=== PATIENT | female | born 1940 | race Caucasian/White ===

== ENCOUNTER 2019-08-03 10:48 | Inpatient (IN) ==
[2019-08-03] MEDS ORDERED: ALBUT/IPRATROP 3MG/0.5MG NEB 3 ML VIAL NEB STA (10:54)
--- NOTE | 2019-08-03 10:58 | Emergency Department Note ---
Entered by Emmy Camarillo acting as a scribe for Jackson Hernandez DO History of Present Illness General Chief complaint: Shortness of Breath/Dyspnea Stated complaint: sob Source: family (daughter) and EMS History of Present Illness Onset (ago): hour(s) (several hours prior to arrival) Location: chest Pain Consistency: + other (worsening ) Quality: + other (shortness of breath ) Associated symptoms: + other (positive left leg swelling; positive congestion); no nausea/vomiting Treatments prior to arrival: other (duoneb ) The patient is a 79 year old female who presents to the Emergency Room with complaints of worsening shortness of breath that began several hours prior to arrival, per the patient's daughter. EMS reports that the patient's SATs were in the low 80s upon their arrival. EMS states that the patient was given a duoneb treatment prior to arrival. The patient's daughter states that the patient was at her baseline yesterday with some congestion. Per the patient's daughter, the patient was suctioned and a clear yellow mucous was removed. The patient's daughter denies any nausea, vomiting, and chance of aspiration. The patient's daughter reports a history of left-sided pneumonia in the patient. The patient's daughter states that the patient was recently found to have a hiatal hernia so her omeprazole was increased. The patient's daughter states that the patient has swelling in her legs at baseline, but states that since yesterday the patient's left leg has been swollen and has not reduced like it typically does throughout the day. The patient's daughter states that the patient did not receive a flu shot this year. Home Medications Home Medications Medication Instructions Recorded Confirmed Type cholecalciferol (vitamin D3) 25 1,000 units PO QAM 04/09/19 08/03/19 History mcg (1,000 unit) capsule docusate sodium 100 mg capsule 100 mg PO BID 04/09/19 08/03/19 History fluoxetine 20 mg capsule 20 mg PO QAM 04/09/19 08/03/19 History fluticasone propionate 50 1 sprays INTNAS DAILY PRN 04/09/19 08/03/19 History mcg/actuation nasal spray,suspension furosemide 20 mg tablet 20 mg PO QAM 04/09/19 08/03/19 History losartan 25 mg tablet 25 mg PO QAM 04/09/19 08/03/19 History tramadol 50 mg tablet 50 mg PO Q4H PRN tab 04/09/19 08/03/19 History Linzess 145 mcg PO QAM 04/18/19 08/03/19 History Mucinex DM 1 tab PO Q12H 08/03/19 08/03/19 History albuterol sulfate 2.5 mg INHALATION Q4H PRN 08/03/19 08/03/19 History levocetirizine 5 mg PO HS 08/03/19 08/03/19 History omeprazole 20 mg PO BID 08/03/19 08/03/19 History Allergies Allergy/AdvReac Type Severity Reaction Status Date / Time doxycycline Allergy Severe swollen Verified 08/03/19 11:27 eyes Bactrim Allergy Unknown UNKNOWN Unverified 03/17/14 14:51 Cipro Allergy Unknown UNKNOWN Unverified 03/17/14 14:51 ciprofloxacin Allergy Unknown UNKNOWN Unverified 08/03/19 11:27 sulfamethoxazole Allergy Unknown UNKNOWN Unverified 08/03/19 11:27 trimethoprim Allergy Unknown UNKNOWN Unverified 08/03/19 11:27 Past Med/Surg History Medical History (Updated 08/03/19 @ 17:36 by Laverne Crocker PA-C) Cardiac murmur Depression Encounter for pre-operative examination GERD (gastroesophageal reflux disease) History of hypertension History of pneumonia "CHRONIC" Hx of shortness of breath IBS (irritable bowel syndrome) Kyphoscoliosis Osteoarthritis Polio WHEELCHAIR BOUND Restrictive lung disease Surgical History Difficult intravenous access PT VERY ANXIOUS ABOUT IV STICK ALSO! History of cholecystectomy History of colonoscopy Family History Sister Family history of diabetes mellitus Brother Family history of diabetes mellitus Brother Family history of diabetes mellitus Brother Family history of diabetes mellitus Brother Family history of diabetes mellitus Other Diabetes Heart disease Lung cancer Lung disease Social History Preferred Language: Afghan Communication Ability: Effective Supervisor Paste Mixing Required: No Beliefs That Will Affect Care: None Current Living Situation: Alone Current Living Situation Comment: Personal care Other Information That Helps Us Care for You: No Feels Safe at Home: Yes Safety Concerns: Feels Safe At This Time Smoking Status: Current every day smoker Tobacco Type: cigarettes ; Cigarettes Per Day: 1 ; Do You Dip or Chew Tobacco: No ; Second Hand Exposure: No ; Tobacco Cessation Education Requested by Patient: No Hx Alcohol Use: No Hx Substance Use: No Review of Systems See HPI for pertinent positives & negatives. and A total of 10 systems reviewed and were otherwise negative Physical Exam Vital Signs Vital Signs - 24 hr 08/03/19 10:37 08/03/19 10:53 08/03/19 10:54 Temperature Temperature Source Pulse Rate 96 H 96 H 94 H Pulse Rate [Right Apical] Pulse Rate from SpO2 Sensor 97 H 97 H Respiratory Rate 28 H 27 H 26 H Respiratory Effort / Characteristics Blood Pressure 132/60 174/70 H Blood Pressure Mean 93 100 Pulse Oximetry 84 L 87 L Oxygen Delivery Method Oxygen Flow Rate Sepsis Recent Fever Within 48 Hours Sepsis Action Taken by Nursing 08/03/19 11:00 08/03/19 11:01 08/03/19 11:05 Temperature Temperature Source Pulse Rate 92 H 92 H Pulse Rate [Right Apical] Pulse Rate from SpO2 Sensor 91 H 92 H Respiratory Rate 25 H 23 Respiratory Effort / Characteristics Blood Pressure 164/68 H Blood Pressure Mean 103 Pulse Oximetry 93 90 96 Oxygen Delivery Method Room Air Oxygen Flow Rate Sepsis Recent Fever Within 48 Hours Sepsis Action Taken by Nursing 08/03/19 11:06 08/03/19 11:10 08/03/19 11:11 Temperature 36.4 C L Temperature Source Oral Pulse Rate 96 H Pulse Rate [Right Apical] 91 H Pulse Rate from SpO2 Sensor Respiratory Rate 26 H 18 Respiratory Effort / Characteristics Non-Labored Spontaneous Blood Pressure 174/70 H Blood Pressure Mean 104 Pulse Oximetry 87 L 93 91 Oxygen Delivery Method Room Air Nasal Cannula Nasal Cannula Oxygen Flow Rate 4 4 Sepsis Recent Fever Within 48 Hours No Sepsis Action Taken by Nursing No Action Required 08/03/19 11:30 08/03/19 12:00 08/03/19 12:01 Temperature Temperature Source Pulse Rate 90 87 87 Pulse Rate [Right Apical] Pulse Rate from SpO2 Sensor 90 86 87 Respiratory Rate 22 22 22 Respiratory Effort / Characteristics Blood Pressure 141/82 H Blood Pressure Mean 92 Pulse Oximetry 93 99 98 Oxygen Delivery Method Oxygen Flow Rate Sepsis Recent Fever Within 48 Hours Sepsis Action Taken by Nursing 08/03/19 12:23 08/03/19 12:30 08/03/19 12:31 Temperature Temperature Source Pulse Rate 86 86 Pulse Rate [Right Apical] Pulse Rate from SpO2 Sensor 86 86 Respiratory Rate 21 18 Respiratory Effort / Characteristics Blood Pressure 137/73 Blood Pressure Mean 83 Pulse Oximetry 96 96 96 Oxygen Delivery Method Nasal Cannula Oxygen Flow Rate 4 Sepsis Recent Fever Within 48 Hours Sepsis Action Taken by Nursing 08/03/19 13:00 08/03/19 13:01 08/03/19 13:18 Temperature Temperature Source Pulse Rate 83 84 Pulse Rate [Right Apical] Pulse Rate from SpO2 Sensor 83 84 Respiratory Rate 21 20 Respiratory Effort / Characteristics Blood Pressure 153/84 H Blood Pressure Mean 102 Pulse Oximetry 100 99 99 Oxygen Delivery Method Nasal Cannula Oxygen Flow Rate 3 Sepsis Recent Fever Within 48 Hours Sepsis Action Taken by Nursing 08/03/19 13:30 08/03/19 13:31 08/03/19 14:00 Temperature Temperature Source Pulse Rate 84 82 75 Pulse Rate [Right Apical] Pulse Rate from SpO2 Sensor 84 83 75 Respiratory Rate 19 19 18 Respiratory Effort / Characteristics Blood Pressure 167/73 H 177/69 H Blood Pressure Mean 94 112 Pulse Oximetry 98 97 98 Oxygen Delivery Method Oxygen Flow Rate Sepsis Recent Fever Within 48 Hours Sepsis Action Taken by Nursing 08/03/19 14:01 Temperature Temperature Source Pulse Rate 77 Pulse Rate [Right Apical] Pulse Rate from SpO2 Sensor 77 Respiratory Rate 20 Respiratory Effort / Characteristics Blood Pressure Blood Pressure Mean Pulse Oximetry 99 Oxygen Delivery Method Oxygen Flow Rate Sepsis Recent Fever Within 48 Hours Sepsis Action Taken by Nursing GENERAL: Patient is awake and responds to questions. She appears somewhat li stless but does not appear to be in pain. EYES: The conjunctivae are clear. The pupils are round and reactive. EARS, NOSE, MOUTH AND THROAT: The nose is without any evidence of any deformity. Mucous membranes are dry. NECK: The neck is nontender and supple. RESPIRATORY: Shallow respirations were noted. There were scattered rhonchi noted throughout. Diminished breath sounds are noted at both bases left greater than right. CARDIOVASCULAR: Regular rate and rhythm noted there no murmurs rubs or gallops normal S1 normal S2. GASTROINTESTINAL: The abdomen is soft. Abdomen is nontender. BACK: Severe kyphoscoliosis is noted. MUSCULOSKELETAL/EXTREMITIES: There is no evidence of gross deformity full range of motion is noted in the hips and shoulders. SKIN: There is no obvious evidence of any rash. Pedal edema was noted left greater than right. NEUROLOGIC: Patient is awake and oriented to person place and situation. Course Course 1049: Past medical records reviewed. The patient was evaluated in room C9. A complete history and physical exam was performed. 1259: I checked on and updated the patient and her family. 1310: I discussed the case with Laverne Zuleta PA-C who accepts the patient for further evaluation by Dr. Mack Hospitalist who accepts the patient for further evaluation. Administered Medications Acetylcysteine (Mucomyst 10%) 3 ml INH Q12R ROSELYN Stop: 09/02/19 15:43 Last Admin: 08/04/19 07:10 Dose: 3 ml Documented by: [id number] Admin: 08/03/19 19:52 Dose: 1 ml Documented by: [id number] Docusate Sodium (Colace) 100 mg PO BID ROSELYN Stop: 09/02/19 20:59 Last Admin: 08/04/19 08:09 Dose: 100 mg Documented by: [id number] Admin: 08/03/19 21:22 Dose: 100 mg Documented by: [id number] Fluoxetine HCl (Prozac) 20 mg PO QAM ROSELYN Stop: 09/03/19 08:59 Last Admin: 08/04/19 08:13 Dose: 20 mg Documented by: [id number] Guaifenesin (Mucinex) 600 mg PO Q12 ROSELNY Stop: 09/02/19 20:59 Last Admin: 08/04/19 08:13 Dose: 600 mg Documented by: [id number] Admin: 08/03/19 21:21 Dose: 600 mg Documented by: [id number] Heparin Sodium (Porcine) (Heparin Sodium (Porcine)) 5,000 units SQ Q12 ROSELYN Stop: 09/02/19 20:59 Last Admin: 08/04/19 08:20 Dose: Not Given Documented by: [id number] Admin: 08/03/19 21:21 Dose: Not Given Documented by: [id number] Sodium Chloride (Nss) 500 mls @ 60 mls/hr IV .Q8H20M ROSELYN Stop: 09/02/19 16:29 Last Admin: 08/04/19 08:24 Dose: 60 mls/hr Documented by: [id number] Infusion: 08/04/19 08:23 Dose: 0 mls/hr Documented by: [id number] Admin: 08/04/19 01:15 Dose: 60 mls/hr Documented by: [id number] Infusion: 08/04/19 01:13 Dose: 0 mls/hr Documented by: [id number] Admin: 08/03/19 17:20 Dose: 60 mls/hr Documented by: [id number] Piperacillin Sod/Tazobactam (Sod 3.375 gm/ Dextrose) 115 mls @ 28.75 mls/hr IV Q8H [facility]; Protocol Stop: 08/10/19 17:59 Last Admin: 08/04/19 08:27 Dose: 28.8 mls/hr Documented by: [id number] Infusion: 08/04/19 05:15 Dose: 0 mls/hr Documented by: [id number] Admin: 08/04/19 01:15 Dose: 28.8 mls/hr Documented by: [id number] Infusion: 08/03/19 21:28 Dose: 0 mls/hr Documented by: [id number] Admin: 08/03/19 17:28 Dose: 28.8 mls/hr Documented by: [id number] Ioversol (Optiray 320 125ml) 120 ml IV ONCE PRN PRN Reason: Interaction Checking Stop: 08/07/19 14:23 Last Admin: 08/03/19 14:24 Dose: 120 ml Documented by: [id number] Ipratropium [place] (Atrovent 0.02% 0.5mg/2.5ml) 0.5 mg INH Q6R [facility] Stop: 09/02/19 15:43 Last Admin: 08/04/19 07:11 Dose: 0.5 mg Documented by: [id number] Admin: 08/04/19 00:42 Dose: 0.5 mg Documented by: [id number] Admin: 08/03/19 21:22 Dose: Not Given Documented by: [id number] Levalbuterol HCl (Xopenex 0.63 Mg/3 Ml Neb) 0.63 mg NEB Q6R [facility] Stop: 09/02/19 15:43 Last Admin: 08/04/19 07:11 Dose: 0.63 mg Documented by: [id number] Admin: 08/04/19 00:41 Dose: 0.63 mg Documented by: [id number] Admin: 08/03/19 19:51 Dose: 0.63 mg Documented by: [id number] [facility]ess) [facility] Stop: 09/03/19 08:59 Last Admin: 08/04/19 08:11 Dose: 144 mcg Documented by: [id number] Losartan Potassium (Cozaar) 50 mg PO QAM [facility] Stop: 09/03/19 03:59 Last Admin: 08/04/19 05:03 Dose: 50 mg Documented by: [id number] Menthol (Nice) 1 oscar BUCCAL Q2H PRN PRN Reason: Sore Throat Stop: 09/03/19 06:05 Last Admin: 08/04/19 06:49 Dose: 1 oscar Documented by: [id number] Miscellaneous (Order Awaiting Action) 1 ea N/A QS [facility] Stop: 09/03/19 00:00 Last Admin: 08/04/19 08:09 Dose: Not Given Documented by: [id number] Admin: 08/04/19 00:17 Dose: Not Given Documented by: [id number] Pantoprazole Sodium (Protonix) 40 mg PO DAILY [facility] Stop: 09/03/19 08:59 Last Admin: 08/04/19 08:12 Dose: 40 mg Documented by: [id number] Tramadol HCl (Ultram) 50 mg PO Q4H PRN PRN Reason: pain Stop: 09/02/19 15:43 Last Admin: 08/04/19 02:30 Dose: 50 mg Documented by: [id number] Vitamin D (Vitamin D3) 1,[facility] [place] Stop: 09/03/19 08:59 Last Admin: 08/04/19 08:14 Dose: 1,000 units Documented by: [id number] Discontinued Medications Acetylcysteine (Mucomyst 10%) 3 ml INH Q12H [facility] Stop: 09/02/19 15:43 Last Admin: 08/03/19 16:47 Dose: 3 ml Documented by: [id number] Albuterol (Duoneb) 3 ml NEB NOW STA Stop: 08/03/19 10:55 Last Admin: 08/03/19 11:07 Dose: 3 ml Documented by: [id number] Piperacillin Sod/Tazobactam Sod (Zosyn) 4.5 gm in 120 mls @ 240 mls/hr IV NOW ONE Stop: 08/03/19 13:24 Last Infusion: 08/03/19 14:02 Dose: 0 mls/hr Documented by: [id number] Admin: 08/03/19 13:32 Dose: 240 mls/hr Documented by: [id number] Sodium Chloride (Nss 1000ml) 500 mls @ 999 mls/hr IV .Q31M ONE Stop: 08/03/19 13:26 Last Infusion: 08/03/19 14:02 Dose: 0 mls/hr Documented by: [id number] Admin: 08/03/19 13:32 Dose: 999 mls/hr Documented by: [id number] Ipratropium [place] (Atrovent 0.02% 0.5mg/2.5ml) 0.5 mg INH UD [facility] Stop: 09/02/19 15:43 Last Admin: 08/03/19 16:36 Dose: 0.5 mg Documented by: [id number] Levalbuterol HCl (Xopenex 0.63 Mg/3 Ml Neb) 0.63 mg NEB UD ROSE[place]N Stop: 09/02/19 15:43 Last Admin: 08/03/19 16:36 Dose: 0.63 mg Documented by: [id number] Medical Decision Making Differential Diagnosis Differential diagnoses includes but is not limited to pneumonia, bronchitis, COPD/Asthma exacerbation, pneumothorax, pulmonary embolism, congestive heart failure, acute coronary syndrome Medical Records Attestation: I reviewed the patient's medical records. Home Medications Current Medication List: was personally reviewed by me Laboratory Data Attestation: I reviewed the patient's lab results. Result diagrams: 08/04/19 06:39 08/04/19 06:39 Lab Results 08/03/19 08/03/19 08/03/19 Range/Units 11:15 11:52 11:52 WBC 14.93 H (4.8-10.8) K/uL RBC 4.68 (4.2-5.4) M/uL Hgb 14.6 (12.0-16.0) g/dL Hct 42.6 (37-47) % MCV 91.0 (80-100) fL MCH 31.2 (25-34) pg MCHC 34.3 (32-36) g/dL RDW Std Deviation 52.8 H (36.4-46.3) fL RDW Coeff of Bryan 15.9 H (11.5-14.5) % Plt Count 240 (130-400) K/uL MPV 10.0 (7.4-10.4) fL Immature Gran % (Auto) 0.2 % Neut % (Auto) 76.0 % Lymph % (Auto) 14.5 % [place] % (Auto) 5.6 % Eos % (Auto) 3.2 % Baso % (Auto) 0.5 % Immature Gran # (Auto) 0.03 H (0.00-0.02) K/uL Neut # (Auto) 11.35 H (1.4-6.5) K/uL Lymph # (Auto) 2.17 (1.2-3.4) K/uL [place] # (Auto) 0.83 H (0.11-0.59) K/uL Eos # (Auto) 0.48 (0-0.5) K/uL Baso # (Auto) 0.07 (0-0.2) K/uL PT 10.3 (9.0-12.0) Seconds INR 1.0 (0.9-1.1) APTT 24.0 (21.0-31.0) Seconds PTT Ratio 0.9 Sodium (136-145) mmol/L Potassium (3.5-5.1) mmol/L Chloride (98-107) mmol/L Carbon Dioxide (21-32) mmol/L Anion Gap (3-11) BUN (7-18) mg/dl Creatinine (0.6-1.2) mg/dl Est Cr Clr Drug Dosing ml/min Est GFR ( Amer) Est GFR (Non-Af Amer) BUN/Creatinine Ratio (10-20) Glucose (70-99) mg/dl Calcium (8.5-10.1) mg/dl Magnesium (1.8-2.4) mg/dl Total Bilirubin (0.2-1) mg/dl AST (15-37) U/L ALT (12-78) U/L Alkaline Phosphatase (45-117) U/L Troponin I (0-0.045) ng/ml Total Protein (6.4-8.2) gm/dl Albumin (3.4-5.0) gm/dl Globulin (2.5-4.0) gm/dl Albumin/Globulin Ratio (0.9-2) Procalcitonin (0-0.5) ng/ml Influenza Type A (PCR) Neg for Influ A (Neg) Influenza Type B (PCR) Neg for Influ B (Neg) 08/03/19 08/03/19 Range/Units 11:52 11:52 WBC (4.8-10.8) K/uL RBC (4.2-5.4) M/uL Hgb (12.0-16.0) g/dL Hct (37-47) % MCV (80-100) fL MCH (25-34) pg MCHC (32-36) g/dL RDW Std Deviation (36.4-46.3) fL RDW Coeff of Bryan (11.5-14.5) % Plt Count (130-400) K/uL MPV (7.4-10.4) fL Immature Gran % (Auto) % Neut % (Auto) % Lymph % (Auto) % [place] % (Auto) % Eos % (Auto) % Baso % (Auto) % Immature Gran # (Auto) (0.00-0.02) K/uL Neut # (Auto) (1.4-6.5) K/uL Lymph # (Auto) (1.2-3.4) K/uL [place] # (Auto) (0.11-0.59) K/uL Eos # (Auto) (0-0.5) K/uL Baso # (Auto) (0-0.2) K/uL PT (9.0-12.0) Seconds INR (0.9-1.1) APTT (21.0-31.0) Seconds PTT Ratio Sodium 134 L (136-145) mmol/L Potassium 4.1 (3.5-5.1) mmol/L Chloride 101 (98-107) mmol/L Carbon Dioxide 24 (21-32) mmol/L Anion Gap 9.0 (3-11) BUN 34 H (7-18) mg/dl Creatinine 0.92 (0.6-1.2) mg/dl Est Cr Clr Drug Dosing 26.1 ml/min Est GFR ( Amer) 68.2 Est GFR (Non-Af Amer) 58.8 BUN/Creatinine Ratio 37.2 H (10-20) Glucose 120 H (70-99) mg/dl Calcium 9.1 (8.5-10.1) mg/dl Magnesium 2.1 (1.8-2.4) mg/dl Total Bilirubin 0.6 (0.2-1) mg/dl AST 22 (15-37) U/L ALT 17 (12-78) U/L Alkaline Phosphatase 91 (45-117) U/L Troponin I 0.015 (0-0.045) ng/ml Total Protein 7.2 (6.4-8.2) gm/dl Albumin 3.3 L (3.4-5.0) gm/dl Globulin 3.9 (2.5-4.0) gm/dl Albumin/Globulin Ratio 0.8 L (0.9-2) Procalcitonin < 0.05 (0-0.5) ng/ml Influenza Type A (PCR) (Neg) Influenza Type B (PCR) (Neg) Imaging Data Radiologist's Impression: Radiology results as stated below per my review and the radiologist's interpretation: SINGLE VIEW CHEST CLINICAL HISTORY: Sepsis. FINDINGS: An AP, portable, upright chest radiograph is compared to study dated 03/30/2006. The examination is degraded by portable technique and patient rotation. The cardiomediastinal silhouette is unremarkable noting atheroscle rotic calcification of the thoracic aorta. Chronic interstitial thickening is similar to previous. No airspace consolidation or large pleural effusion is identified. There is mild bibasilar atelectasis. A nipple shadow projects over the right lung base. No pneumothorax is seen. The skeletal structures are osteopenic. The bony thorax is grossly intact. There is moderate thoracolumbar scoliosis. IMPRESSION: No active disease in the chest. ACT 112: Negative or not required by law. Electronically signed by: Suleman Aguiar M.D. 08/03/2019 12:[address] ANGIOGRAM OF THE CHEST CLINICAL HISTORY: Dyspnea. COMPARISON STUDY: Chest CT dated 02/25/2019. Chest x-ray dated 08/03/2019. TECHNIQUE: Following the IV administration of 120 cc of Optiray 320, CT ang iogram of the chest was performed from the upper abdomen to the thoracic inlet utilizing the pulmonary embolus protocol. Images are reviewed in the axial, sagittal, and coronal planes. 3-D MIPS images are created and assessed. IV contrast was administered without complication. A dose lowering technique was utilized adhering to the principles of ALARA. The examination is significantly degraded by streak artifact from the arms which could not be elevated above the chest as well as by motion artifact. CT DOSE: 233.97 mGy.cm FINDINGS: Thyroid: Heterogeneous and not well visualized. Thoracic aorta: There is atherosclerotic calcification of the thoracic aorta, which is normal in caliber and demonstrates standard 3-vessel arch anatomy. The thoracic aorta is not well opacified. Pulmonary vasculature: The pulmonary trunk is normal in caliber. There are no filling defects identified in main, lobar, or segmental pulmonary branches to suggest pulmonary embolus. Heart: The heart is normal in size and without pericardial effusion. The coronary arteries are densely calcified. Lungs and pleural spaces: Evaluation of the lung parenchyma is modestly degraded by motion artifact. No lobar consolidation or pleural effusion is identified. Scarring/atelectasis is noted at the lung bases. There is mild diffuse peribronchial thickening with foci of mucus plugging/fluid and secretions seen in the upper and lower lobes. Layering secretions are noted in the trachea. There are scattered foci of parenchymal nodularity. A 5 mm nodule at the left lung base is image #37. A 3 m groundglass nodule in the right lower lobe as seen on image #143. Additional smaller ill-defined nodules are noted. Mediastinum: There is no mediastinal lymphadenopathy. [place]: Clear. Axillae: There is no axillary lymphadenopathy. Upper abdomen: Cholecystectomy clips are noted. Partially visualized upper abdominal viscera is otherwise grossly unremarkable. Skeletal structures: The skeletal structures are osteopenic. There is moderate to severe thoracolumbar scoliosis. This distorts the thoracic cavity. No lytic or blastic bony lesions are seen. IMPRESSION: 1. Streak and motion compromised examination. 2. There is no evidence of pulmonary embolus in the main, lobar, or segmental pulmonary arteries. 3. Moderate to severe thoracolumbar scoliosis distorts the thoracic cage. 4. There is no focal airspace consolidation or pleural effusion. 5. There are layering secretions in the trachea. Additionally, there is diffuse peribronchial thickening with fluid and secretions/mucous plugging within the upper and lower lobe bronchi. Correlate clinically for evidence of bronchitis/reactive airway disease or possibly mild aspiration. 6. Foci of ill-defined parenchymal nodularity are of indeterminate significance and similar to the 02/25/2019 examination. This can be followed if clinically warranted. See below. 7. Additional findings as above. Please refer to below summary of Fleischner criteria recommendations for follow- up of incidental CT nodules (Daysi Flynn, Guidelines for management of small p ulmonary nodules detected on CT scans: A statement from the Fleischner Society, Radiology 237: [phone].) SOLID NODULES Solitary nodule size: <6 mm * low risk patients: no follow-up needed * high risk patients: optional CT at 12 months Solitary nodule size: 6-8 mm * low risk patients: follow-up at 6-12 months, then consider further follow-up at 18-24 months * high risk patients: initial follow-up CT at 6-12 months and then at 18-24 months if no change Solitary nodule size: >8 mm * either low or high risk patients - consider follow-up CT at 3 months, and/or CT-PET, and/or biopsy Multiple nodules size: <6 mm * low risk patients: no routine follow-up * high risk patients: optional CT at 12 months Multiple nodules size: 6-8 mm * low risk patients: follow-up at 3-6 months, then consider further follow-up at 18-24 months * high risk patients: follow-up at 3-6 months, then at 18-24 months if no change Multiple nodules size: >8 mm * low risk patients: follow-up at 3-6 months, then consider further follow-up at 18-24 months * high risk patients: follow-up at 3-6 months, then at 18-24 months if no change Note: newly detected indeterminate nodule in persons 35 years of age or older. * low risk patients: minimal or absent history of smoking and/or other known risk factors * high risk patients: history of smoking or of other known risk factors (e.g. first degree relative with lung cancer, or exposure to asbestos, radon, uranium) * if a nodule up to 8 mm is partly solid or is ground glass further follow-up is required after 24 months to exclude possible slow growing adenocarcinoma (JABARI) SUBSOLID NODULES Solitary pure ground-glass nodule * nodule size <6 mm - no CT follow-up required * nodule size >=6 mm - follow-up CT at 6-12 months, then every 2 years until 5 years Solitary part-solid nodule * nodule size <6 mm - no CT follow-up required * nodule size >=6 mm - follow-up CT at 3-6 months. If unchanged, and solid component remains <6 mm, then annual follow-up for 5 years Multiple subsolid nodules * nodule size <6 mm - follow-up CT at 3-6 months, consider further follow-up at 2 and 4 years if stable * nodule size >=6 mm - follow-up CT at 3-6 months, subsequent management based on the most suspicious nodule(s) ACT 112: Negative or not required by law. Electronically signed by: Suleman Aguiar M.D. 08/03/2019 2:44 PM ECG Data Attestation: I personally reviewed and interpreted this ECG as follows: Indication: + SOB/dyspnea Rate (beats per minute): 91 Rhythm: + normal sinus ECG ST segments: + ST depression (inferior and lateral) ECG Findings: + Poor R wave progression; no PACs and no PVCs Comparison ECG Date: from (04/01/06) Change: no significant change (changes similar but increased) Blood Pressure Blood Pressure Findings: Elevated blood pressure Blood Pressure Disposition: further management by hospitalist MDM Narrative The patient is an 79-year-old female who presented to the emergency department for an evaluation of difficulty breathing. The patient arrived at the emergency department with family members. She was found to be severely hypoxic prior to arrival. She has a history of polio and severe kyphoscoliosis. The patient has had pneumonia in the past. The patient was treated with IV fluids and IV antibiotics. She was also treated with bronchodilators in the emergency department. She was reevaluated multiple times. I discussed the patient's laboratory and radiographic studies with her and her family members. Given her ongoing symptoms I discussed her case with the on-call [facility] hospitalist group. They have agreed to evaluate the patient in the emergency department for further management and disposition. Impression & Plan Bronchitis, Hypoxia, Weakness, Abnormal ECG Discharge Plan Visit Data *Final* Discharge Date/Time: 08/03/19 15:05 Chief Complaint: Shortness of Breath/Dyspnea Stated Complaint: sob ED Provider: Jackson Hernandez Discharge Problem: Bronchitis, Hypoxia, Weakness, Abnormal ECG Patient Disposition: Admitted As Inpatient Discharge Instructions Interventions: ED Discharge Assessment Last Done: 08/03/19 15:05 The scribe's documentation has been prepared under my direction and personally reviewed by me in its entirety. I confirm that the note above accurately reflects all work, treatment, procedures, and medical decision making performed by me.
[2019-08-03 12:00] LABS: Influenza A virus by PCR Neg for Influ A (Neg); Influenza B virus by PCR Neg for Influ B (Neg)
[2019-08-03 12:05] LABS: Basophils # (auto) 0.07 K/uL (0-0.2); Basophils % (auto) 0.5 %; Eosinophils # (auto) 0.48 K/uL (0-0.5); Eosinophils % (auto) 3.2 %; Hematocrit (blood only) 42.6 % (37-47); Hemoglobin 14.6 g/dL (12.0-16.0); Immature Granulocytes # (auto) 0.03 K/uL (0.00-0.02); Immature Granulocytes % (auto) 0.2 %; Lymphocytes # (auto) 2.17 K/uL (1.2-3.4); Lymphocytes % (auto) 14.5 %; Mean Corpuscular Hemoglobin 31.2 pg (25-34); Mean Corpuscular Hgb Conc 34.3 g/dL (32-36); Monocytes # (auto) 0.83 K/uL (0.11-0.59); Monocytes % (auto) 5.6 %; Neutrophils # (auto) 11.35 K/uL (1.4-6.5); Platelet Count 240 K/uL (130-400); RDW Coefficient of Variation 15.9 % (11.5-14.5); RDW Standard Deviation 52.8 fL (36.4-46.3); Red Blood Count 4.68 M/uL (4.2-5.4); White Blood Count 14.93 K/uL (4.8-10.8)
[2019-08-03 12:15] LABS: Partial Thromboplastin Ratio 0.9; Prothrombin Time 10.3 Seconds (9.0-12.0)
[2019-08-03 12:21] LABS: Albumin Level 3.3 gm/dl (3.4-5.0); BUN Creatinine Ratio 37.2 (10-20); Calcium 9.1 mg/dl (8.5-10.1); Creatinine Clr Calc Pharmacy 26.1 ml/min; Est GFR (African American) 68.2; Est GFR (Non-African American) 58.8; Magnesium 2.1 mg/dl (1.8-2.4); Potassium 4.1 mmol/L (3.5-5.1)
[2019-08-03 12:26] LABS: Albumin Globulin Ratio 0.8 (0.9-2); Bilirubin,Total 0.6 mg/dl (0.2-1); Globulin 3.9 gm/dl (2.5-4.0); Total Protein 7.2 gm/dl (6.4-8.2); Troponin I 0.015 ng/ml (0-0.045)
--- NOTE | 2019-08-03 12:43 | XRay Report ---
SINGLE VIEW CHEST CLINICAL HISTORY: Sepsis. FINDINGS: An AP, portable, upright chest radiograph is compared to study dated 03/30/2006. The examin ation is degraded by portable technique and patient rotation. The cardiomediastinal silhouette is u nremarkable noting atherosclerotic calcification of the thoracic aorta. Chronic interstitial thickeni ng is similar to previous. No airspace consolidation or large pleural effusion is identified. There i s mild bibasilar atelectasis. A nipple shadow projects over the right lung base. No pneumothorax is s een. The skeletal structures are osteopenic. The bony thorax is grossly intact. There is moderate tho racolumbar scoliosis. IMPRESSION: No active disease in the chest. ACT 112: Negative or not required by law. Electronically signed by: Suleman Aguiar M.D. 08/03/2019 12:42 PM
--- NOTE | 2019-08-03 12:54 | Electrocardiogram Report ---
Test Reason : Blood Pressure : / mmHG Vent. Rate : 091 BPM Atrial Rate : 091 BPM P-R Int : 144 ms QRS Dur : 084 ms QT Int : 404 ms P-R-T Axes : 073 015 124 degrees QTc Int : 496 ms Poor data quality, interpretation may be adversely affected Sinus rhythm with Premature atrial complexes Left atrial enlargement Cannot rule out Anterior infarct , age undetermined Abnormal ECG When compared with ECG of 01-APR-2006 08:38, Premature atrial complexes are now Present Minimal criteria for Anterior infarct are now Present T wave inversion now evident in Lateral leads Confirmed by Luca Moraes ([id number]) on 08/03/2019 12:54:14 PM Referred By: REFERRED SELF Confirmed By:Luca Moraes
[2019-08-03] MEDS ORDERED: PIPERACILL/TAZOBAC CONSULT ACTIVE PRN ×2 (12:55→16:12)
[2019-08-03] MEDS ORDERED: PIPERACILLIN/TAZOBACTAM 4.5 GM/120 ML BAG IV ONE (12:55)
[2019-08-03] MEDS ORDERED: SODIUM CHLORIDE 0.9% 1000ML 500 ML IV ONE (12:56)
[2019-08-03] MEDS ORDERED: OPTIRAY 320 125ml IV PRN (14:24)
--- NOTE | 2019-08-03 14:45 | CT Scan Report ---
CT ANGIOGRAM OF THE CHEST CLINICAL HISTORY: Dyspnea. COMPARISON STUDY: Chest CT dated 02/25/2019. Chest x-ray dated 08/03/2019. TECHNIQUE: Following the IV administration of 120 cc of Optiray 320, CT angiogram of the chest was pe rformed from the upper abdomen to the thoracic inlet utilizing the pulmonary embolus protocol. Images are reviewed in the axial, sagittal, and coronal planes. 3-D MIPS images are created and assessed. I V contrast was administered without complication. A dose lowering technique was utilized adhering to the principles of ALARA. The examination is significantly degraded by streak artifact from the arms which could not be elevated above the chest as well as by motion artifact. CT DOSE: 233.97 mGy.cm FINDINGS: Thyroid: Heterogeneous and not well visualized. Thoracic aorta: There is atherosclerotic calcification of the thoracic aorta, which is normal in mike bora and demonstrates standard 3-vessel arch anatomy. The thoracic aorta is not well opacified. Pulmonary vasculature: The pulmonary trunk is normal in caliber. There are no filling defects identif ied in main, lobar, or segmental pulmonary branches to suggest pulmonary embolus. Heart: The heart is normal in size and without pericardial effusion. The coronary arteries are densel y calcified. Lungs and pleural spaces: Evaluation of the lung parenchyma is modestly degraded by motion artifact. No lobar consolidation or pleural effusion is identified. Scarring/atelectasis is noted at the lung b ases. There is mild diffuse peribronchial thickening with foci of mucus plugging/fluid and secretions seen in the upper and lower lobes. Layering secretions are noted in the trachea. There are scattered foci of parenchymal nodularity. A 5 mm nodule at the left lung base is image #[id number]. A 3 m groundglass nodule in the right lower lobe as seen on image #143. Additional smaller ill-defined nodules are note d. Mediastinum: There is no mediastinal lymphadenopathy. Nazanin: Clear. Axillae: There is no axillary lymphadenopathy. Upper abdomen: Cholecystectomy clips are noted. Partially visualized upper abdominal viscera is other gates grossly unremarkable. Skeletal structures: The skeletal structures are osteopenic. There is moderate to severe thoracolumba r scoliosis. This distorts the thoracic cavity. No lytic or blastic bony lesions are seen. IMPRESSION: 1. Streak and motion compromised examination. 2. There is no evidence of pulmonary embolus in the main, lobar, or segmental pulmonary arteries. 3. Moderate to severe thoracolumbar scoliosis distorts the thoracic cage. 4. There is no focal airspace consolidation or pleural effusion. 5. There are layering secretions in the trachea. Additionally, there is diffuse peribronchial thicken ing with fluid and secretions/mucous plugging within the upper and lower lobe bronchi. Correlate clin ically for evidence of bronchitis/reactive airway disease or possibly mild aspiration. 6. Foci of ill-defined parenchymal nodularity are of indeterminate significance and similar to the examination. This can be followed if clinically warranted. See below. 7. Additional findings as above. Please refer to below summary of Fleischner criteria recommendations for follow-up of incidental CT n odules (Daysi Flynn, Guidelines for management of small pulmonary nodules detected on CT scans: A sta tement from the Fleischner Society, Radiology 237: [phone].) SOLID NODULES Solitary nodule size: <6 mm * low risk patients: no follow-up needed * high risk patients: optional CT at 12 months Solitary nodule size: 6-8 mm * low risk patients: follow-up at 6-12 months, then consider further follow-up at 18-24 months * high risk patients: initial follow-up CT at 6-12 months and then at 18-24 months if no change Solitary nodule size: >8 mm * either low or high risk patients - consider follow-up CT at 3 months, and/or CT-PET, and/or biopsy Multiple nodules size: <6 mm * low risk patients: no routine follow-up * high risk patients: optional CT at 12 months Multiple nodules size: 6-8 mm * low risk patients: follow-up at 3-6 months, then consider further follow-up at 18-24 months * high risk patients: follow-up at 3-6 months, then at 18-24 months if no change Multiple nodules size: >8 mm * low risk patients: follow-up at 3-6 months, then consider further follow-up at 18-24 months * high risk patients: follow-up at 3-6 months, then at 18-24 months if no change Note: newly detected indeterminate nodule in persons 35 years of age or older. * low risk patients: minimal or absent history of smoking and/or other known risk factors * high risk patients: history of smoking or of other known risk factors (e.g. first degree relative with lung cancer, or exposure to asbestos, radon, uranium) * if a nodule up to 8 mm is partly solid or is ground glass further follow-up is required after 24 m onths to exclude possible slow growing adenocarcinoma (JABARI) SUBSOLID NODULES Solitary pure ground-glass nodule * nodule size <6 mm - no CT follow-up required * nodule size >=6 mm - follow-up CT at 6-12 months, then every 2 years until 5 years Solitary part-solid nodule * nodule size <6 mm - no CT follow-up required * nodule size >=6 mm - follow-up CT at 3-6 months. If unchanged, and solid component remains <6 mm, then annual follow-up for 5 years Multiple subsolid nodules * nodule size <6 mm - follow-up CT at 3-6 months, consider further follow-up at 2 and 4 years if sta ble * nodule size >=6 mm - follow-up CT at 3-6 months, subsequent management based on the most suspiciou s nodule(s) ACT 112: Negative or not required by law. Electronically signed by: Suleman Aguiar M.D. 08/03/2019 2:44 PM
--- NOTE | 2019-08-03 14:47 | History & Physical Report ---
Date of Service August 03, 2019 Assessment & Plan (1) Hypoxia: (2) Bronchitis: Pt is 79 y/o F with PMH HTN, polio, quadriplegia, restrictive lung disease secondary to kyphoscoliosis, GERD, depression, IBS presented to ER with complaint of shortness of breath x 1 day. Worse this morning after daily suctioning with increased SOB, diaphoresis and reported oxygen saturation in the 80s. In ER T: 36.4, R: 26 down to 18, P: 96, BP: 174/70, 86% on RA up to 96% on 3L NC WBC: 14.9, procalcitonin <0.05, lactate not obtained secondary to multiple needle sticks and unable to obtain. Negative influenza CXR: no acute changes CTA Chest: There is no evidence of pulmonary embolus in the main, lobar, or segmental pulmonary arteries. Moderate to severe thoracolumbar scoliosis distorts the thoracic cage.There is no focal airspace consolidation or pleural effusion. There are layering secretions in the trachea. Additionally, there is diffuse peribronchial thickening with fluid and secretions/mucous plugging within the upper and lower lobe bronchi. Foci of ill-defined parenchymal nodularity are of indeterminate significance and similar to the 02/25/2019 examination. DDX: Bronchitis, aspiration, Mucous plugging -In ER given albuterol neb, Zosyn, 500 mL NSS -Blood culture pending -Xopenex/Atrovent nebs -Flutter valve -Mucinex twice daily -Zosyn -Supplemental oxygen as needed -Mucomyst 10% every 12 hours -Pulmonology consult, on-call aware reports will follow on 08/05/2019 -CBC, BMP in a.m. (3) Abnormal ECG: EKG poor tracing difficult to interpret, rate 91, sinus with PACs, T wave inversions laterally. Troponin: 0.015 No chest pain -Trend troponin -If troponins increasing consider echo (4) Restrictive lung disease: (5) Kyphoscoliosis: History restrictive lung disease secondary to kyphoscoliosis (6) GERD (gastroesophageal reflux disease): -Continue PPI (7) IBS (irritable bowel syndrome): -Continue Linzess, stool softeners -MiraLAX as needed for constipation (8) Depression: -Continue fluoxetine DVT Prophylaxis -Heparin SQ admit telemetry Full Code as per discussion with pt, however reports would not want on prolonged life support if poor prognosis Follows with [facility] for routine care Pt was seen and care coordinated with Dr Stephen. See addendum History of Present Illness Chief Complaint: SOB Primary Care Provider: Marcela Hector MD Pt is 79 y/o F with PMH HTN, polio, quadriplegia, restrictive lung disease secondary to kyphoscoliosis, GERD, depression, IBS presented to ER with co mplaint of shortness of breath. Reports chronic productive cough and takes Mucinex twice daily. Patient's daughter reports patient usually requires suctioning once a day. States this morning suctioning when she started become more short of breath and sweaty and had noted oxygen saturation in the 80s. Denies any known fevers, nausea, vomiting. Denies chest pain or choking. Reports chronic constipation, took laxative this morning. Denies any recent travel, ill contacts. Did not have influenza vaccine this season. Reports previously followed with [facility] [place] pulmonology who ordered PFTs however PFTs were not able to be completed secondary to patient not being able to sit up on her own in PFT chamber. Reports history pneumonia and 05/2019 was able to be treated outpatient. Denies ARTEAGA, dizziness, syncope, vision changes, neck pain, orthopnea, palpitations, sore throat, choking, otalgia, rhinorrhea, abdominal pain, increased extremity edema, rashes, urinary symptoms. Allergies Allergy/AdvReac Type Severity Reaction Status Date / Time doxycycline Allergy Severe swollen Verified 08/03/19 11:27 eyes Bactrim Allergy Unknown UNKNOWN Unverified 03/17/14 14:51 Cipro Allergy Unknown UNKNOWN Unverified 03/17/14 14:51 ciprofloxacin Allergy Unknown UNKNOWN Unverified 08/03/19 11:27 sulfamethoxazole Allergy Unknown UNKNOWN Unverified 08/03/19 11:27 trimethoprim Allergy Unknown UNKNOWN Unverified 08/03/19 11:27 Home Medications Home Medications Medication Instructions Recorded Confirmed Type cholecalciferol (vitamin D3) 25 1,000 units PO QAM 04/09/19 08/03/19 History mcg (1,000 unit) capsule docusate sodium 100 mg capsule 100 mg PO BID 04/09/19 08/03/19 History fluoxetine 20 mg capsule 20 mg PO QAM 04/09/19 08/03/19 History fluticasone propionate 50 1 sprays INTNAS DAILY PRN 04/09/19 08/03/19 History mcg/actuation nasal spray,suspension furosemide 20 mg tablet 20 mg PO QAM 04/09/19 08/03/19 History losartan 25 mg tablet 25 mg PO QAM 04/09/19 08/03/19 History tramadol 50 mg tablet 50 mg PO Q4H PRN tab 04/09/19 08/03/19 History Linzess 145 mcg PO QAM 04/18/19 08/03/19 History Mucinex DM 1 tab PO Q12H 08/03/19 08/03/19 History albuterol sulfate 2.5 mg INHALATION Q4H PRN 08/03/19 08/03/19 History levocetirizine 5 mg PO HS 08/03/19 08/03/19 History omeprazole 20 mg PO BID 08/03/19 08/03/19 History Past Med/Surg History Medical History Acute hypoxemic respiratory failure Aspiration pneumonitis Cardiac murmur Depression Encounter for pre-operative examination GERD (gastroesophageal reflux disease) History of hypertension History of pneumonia "CHRONIC" Hx of shortness of breath IBS (irritable bowel syndrome) Kyphoscoliosis Osteoarthritis Polio WHEELCHAIR BOUND Restrictive lung disease Surgical History Difficult intravenous access PT VERY ANXIOUS ABOUT IV STICK ALSO! History of cholecystectomy History of colonoscopy Family History Sister Family history of diabetes mellitus Brother Family history of diabetes mellitus Brother Family history of diabetes mellitus Brother Family history of diabetes mellitus Brother Family history of diabetes mellitus Other Diabetes Heart disease Lung cancer Lung disease Social History Preferred Language: Syrian Communication Ability: Effective Pot Filler Required: No Beliefs That Will Affect Care: None marital status: Current Living Situation: Alone Current Living Situation Comment: Personal care Other Information That Helps Us Care for You: No Feels Safe at Home: Yes Safety Concerns: Feels Safe At This Time Smoking Status: Current every day smoker Tobacco Type: cigarettes ; Cigarettes Per Day: 1 ; Do You Dip or Chew Tobacco: No ; Second Hand Exposure: No ; Tobacco Cessation Education Requested by Patient: No Hx Alcohol Use: No Hx Substance Use: No Review of Systems Review of Systems: All systems reviewed & are unremarkable except as noted in HPI & below Physical Exam Physical Exam: General: no acute distress, thin Head: normocephalic, atraumatic Eyes: PERRL, EOM's intact, conjunctiva non-injected, anicteric ENT: normal inspection external ears, nose, mucous membranes slightly dry Neck: supple, trachea midline Lungs: diminished, scattered rhonchi, no respiratory distress on 3L oxygen via NC with sats 98% CV: RRR, no JVD, no pretibial edema Abd: normal BS, soft, non-tender Ext: no cyanosis, no calf tenderness; left foot with edema (chronic); +quadriplegia Neuro: A&O x 3, no focal deficits noted, normal affect Skin: warm, dry; +erythema to left medial knee bony prominence Results & Data Vital Signs (Past 12 Hours) Vital Signs Temp Pulse Pulse Resp BP Pulse Ox 08/03/19 13:18 99 08/03/19 12:23 96 08/03/19 11:11 91 H 18 91 08/03/19 11:10 93 08/03/19 11:06 36.4 C L 96 H 26 H 174/70 H 87 L 08/03/19 11:05 96 Laboratory Results Short CBC 08/03/19 Range/Units 11:52 WBC 14.93 H (4.8-10.8) K/uL Hgb 14.6 (12.0-16.0) g/dL Hct 42.6 (37-47) % Plt Count 240 (130-400) K/uL BMP 08/03/19 11:52 Sodium 134 L Potassium 4.1 Chloride 101 Carbon Dioxide 24 BUN 34 H Creatinine 0.92 Glucose 120 H Calcium 9.1 Cardiac Enzymes 08/03/19 Range/Units 11:52 Troponin I 0.015 (0-0.045) ng/ml Liver Function 08/03/19 Range/Units 11:52 Total Bilirubin 0.6 (0.2-1) mg/dl AST 22 (15-37) U/L ALT 17 (12-78) U/L Alkaline Phosphatase 91 (45-117) U/L Albumin 3.3 L (3.4-5.0) gm/dl Diagnostic Findings CXR: IMPRESSION: No active disease in the chest. CTA CHEST: IMPRESSION: 1. Streak and motion compromised examination. 2. There is no evidence of pulmonary embolus in the main, lobar, or segmental pulmonary arteries. 3. Moderate to severe thoracolumbar scoliosis distorts the thoracic cage. 4. There is no focal airspace consolidation or pleural effusion. 5. There are layering secretions in the trachea. Additionally, there is diffuse peribronchial thickening with fluid and secretions/mucous plugging within the upper and lower lobe bronchi. Correlate clinically for evidence of bronchitis/reactive airway disease or possibly mild aspiration. 6. Foci of ill-defined parenchymal nodularity are of indeterminate significance and similar to the 02/25/2019 examination. This can be followed if clinically warranted. See below. 7. Additional findings as above. Code Status & VTE Plan VTE Prophylaxis Plan VTE Prophylaxis will be ordered: Yes Supervising Physician Co-Signing Physician Notes Attending Addendum: care coordinated with TATUM Newman please refer to her notes for full details, I agree with her notes patient seen and examined, records reviewed by myself as well on exam, patient seen with daughter and caregiver at bedside not in distress, appears weak but alert, oriented states she feels slightly better, breathing is improving no chest pain no other symptoms VS noted and reviewed oriented x 3, not in distress, speaks in sentences with no effort nor accessory muscle use normal rate, regular rhythm, no murmurs (+) scattered rhonchi bilaterally non distended, soft, nontender (+) mild left foot edema, erythema, warmth (+) quadriplegic WBC 14 Hg [address] chest: mucus plugging, reviewed and noted ASSESSMENT AND PLAN ACUTE RESPIRATORY FAILURE WITH HYPOXIA SECONDARY TO ACUTE BRONCHITIS, POSSIBLE ASPIRATION PNEUMONIA -- nebs, mucinex, Zosyn Pulm Consult LEG EDEMA -- doppler US to r/o DVT other diagnoses and plan of care as per TATUM Stephen MD
[2019-08-03] MEDS ORDERED: IPRATROPIUM BROMIDE NEB SOLN 0.02% 2.5 ML VIAL INH SCH (15:44)
[2019-08-03] MEDS ORDERED: LEVALBUTEROL HCL 0.63 MG/3 ML NEB NEB SCH (15:44)
[2019-08-03] MEDS ORDERED: FLUTICASONE PROPIONATE NA SPR 16 GM BTL NAE PRN (15:44)
[2019-08-03] MEDS ORDERED: ACETAMINOPHEN 325 MG TAB PO PRN (15:44)
[2019-08-03] MEDS ORDERED: POLYETHYLENE (MIRALAX) 17 GM PACK PO PRN (15:44)
[2019-08-03] MEDS: ACETYLCYSTEINE 10% INHAL SOLN 4 ML **DISPENSED BY RESP. INH SCH ×3 (16:32→19:52)
[2019-08-03] MEDS ORDERED: INFLUENZA Vaccine HIGH DOSE 65+yrs 0.5 mL Syr IM ONE (17:15)
[2019-08-03] MEDS: SODIUM CHLORIDE 0.9% 500 ML IV SCH (17:20)
[2019-08-03] MEDS: PIPERACILLIN/TAZOBACTAM 3.375 GM in DEXTROSE 5% 100 ML IV SCH (17:28)
[2019-08-03] MEDS ORDERED: XOPENEX/ATROVENT 0.63mg/0.5MG NEB COMBO NEB SCH (19:00)
[2019-08-03] MEDS: LEVALBUTEROL HCL 0.63 MG/3 ML NEB NEB SCH (19:51)
[2019-08-03] MEDS ORDERED: NON-FORMULARY MEDICATION (Levocetirizine 5 MG) PO SCH (21:00)
[2019-08-03] MEDS: guaiFENesin 600 MG TABCR PO SCH (21:21)
[2019-08-03] MEDS: HEPARIN SOD 5,000 UNIT/0.5 ML VIAL SQ SCH (21:21)
[2019-08-03] MEDS: DOCUSATE SODIUM 100 MG CAP PO SCH (21:22)
[2019-08-03] MEDS: IPRATROPIUM BROMIDE NEB SOLN 0.02% 2.5 ML VIAL INH SCH (21:22)
--- NOTE | 2019-08-03 22:49 | Ultrasound Report ---
US venous doppler LE LT HISTORY: 79 years-old Female left lower leg swelling, r/o dvt acute pain and swelling of the left lo wer extremity COMPARISON: None TECHNIQUE: Multiple real-time sonographic images of the left lower extremity deep venous structures w ere obtained cystic grayscale appearance, color and spectral flow FINDINGS: Flow, compressibility, phasicity and augmentation of the left lower extremity deep venous structures. Moderate subcutaneous edema of the lower leg. IMPRESSION: No sonographic evidence of deep venous thrombosis. ACT 112: Negative or not required by law. The above report was generated using voice recognition software. It may contain grammatical, syntax o r spelling errors. Electronically signed by: Leonard Muller M.D. 08/03/2019 10:48 PM
[2019-08-04] MEDS: LEVALBUTEROL HCL 0.63 MG/3 ML NEB NEB SCH ×4 (00:41→20:33)
[2019-08-04] MEDS: IPRATROPIUM BROMIDE NEB SOLN 0.02% 2.5 ML VIAL INH SCH ×4 (00:42→20:33)
[2019-08-04] MEDS: SODIUM CHLORIDE 0.9% 500 ML IV SCH ×2 (01:15→08:24)
[2019-08-04] MEDS: PIPERACILLIN/TAZOBACTAM 3.375 GM in DEXTROSE 5% 100 ML IV SCH ×3 (01:15→17:20)
[2019-08-04] MEDS: TRAMADOL HCL 50 MG TABLET PO PRN ×2 (02:30→13:13)
[2019-08-04] MEDS: LOSARTAN POTASSIUM 50 MG TAB PO SCH (05:03)
[2019-08-04] MEDS: COUGH DROP (SUGAR FREE) LOZ 24 LOZ/1 BOX BUCCAL PRN (06:49)
[2019-08-04 07:04] LABS: Basophils # (auto) 0.02 K/uL (0-0.2); Basophils % (auto) 0.1 %; Hematocrit (blood only) 41.7 % (37-47); Hemoglobin 14.2 g/dL (12.0-16.0); Immature Granulocytes # (auto) 0.03 K/uL (0.00-0.02); Immature Granulocytes % (auto) 0.2 %; Lymphocytes # (auto) 0.52 K/uL (1.2-3.4); Lymphocytes % (auto) 3.1 %; Mean Corpuscular Hemoglobin 30.9 pg (25-34); Mean Corpuscular Hgb Conc 34.1 g/dL (32-36); Mean Corpuscular Volume 90.7 fL (80-100); Mean Platelet Volume 10.1 fL (7.4-10.4); Monocytes # (auto) 1.12 K/uL (0.11-0.59); Monocytes % (auto) 6.7 %; Neutrophils # (auto) 14.97 K/uL (1.4-6.5); Neutrophils % (auto) 89.9 %; Platelet Count 228 K/uL (130-400); RDW Coefficient of Variation 16.2 % (11.5-14.5); RDW Standard Deviation 53.1 fL (36.4-46.3); White Blood Count 16.66 K/uL (4.8-10.8)
[2019-08-04] MEDS: ACETYLCYSTEINE 10% INHAL SOLN 4 ML **DISPENSED BY RESP. INH SCH ×2 (07:10→20:33)
[2019-08-04 07:41] LABS: Calcium 8.4 mg/dl (8.5-10.1); Creatinine Clr Calc Pharmacy 32.5 ml/min; Est GFR (African American) 90.2; Est GFR (Non-African American) 77.8
[2019-08-04 07:58] LABS: Troponin I 0.383 ng/ml (0-0.045)
[2019-08-04] MEDS: DOCUSATE SODIUM 100 MG CAP PO SCH ×2 (08:09→20:13)
[2019-08-04] MEDS: HEPARIN SOD 5,000 UNIT/0.5 ML VIAL SQ SCH ×3 (08:10→20:21)
[2019-08-04] MEDS: LINACLOTIDE 72 MCG CAPSULE PO SCH (08:11)
[2019-08-04] MEDS: PANTOprazole 40 MG TAB PO SCH (08:12)
[2019-08-04] MEDS: FLUOXETINE HCL 20 MG CAP PO SCH (08:13)
[2019-08-04] MEDS: guaiFENesin 600 MG TABCR PO SCH ×2 (08:13→20:13)
[2019-08-04] MEDS: CHOLECALCIFEROL 1,000 UNITS 25 MCG TAB PO SCH (08:14)
[2019-08-04] MEDS ORDERED: LOSARTAN POTASSIUM 25 MG TAB PO SCH (09:00)
[2019-08-04] MEDS ORDERED: METOPROLOL TARTRATE 1 MG/ML VIAL IV STA (10:21)
[2019-08-04] MEDS ORDERED: STAT IV Infusion **Titration per Protocol STA (10:22)
[2019-08-04] MEDS ORDERED: 0.2 MICRON FILTER SET 1 EA IV ONE (10:22)
[2019-08-04] MEDS ORDERED: AMIODARONE IV BOLUS & DRIP IV STA (10:22)
[2019-08-04] MEDS ORDERED: AMIODARONE / D5W 150 MG/100 ML BAG IV STA (10:35)
[2019-08-04] MEDS ORDERED: AMIODARONE / D5W 360 MG/200 ML BAG IV SCH ×2 (10:45→16:46)
--- NOTE | 2019-08-04 12:14 | Pulmonary Consultation ---
Date of Consultation August 04, 2019 Assessment & Plan (1) Acute hypoxemic respiratory failure: Patient with a history of severe thoracic cage abnormality and neuromuscular disease. I do believe that her coughing is severely impaired and this is why she is aspirating on her secretions. Recommend her to be completely n.p.o. currently. Obtain a speech therapy consult tomorrow. I would recommend switching antibiotics to ceftriaxone and azithromycin. Procalcitonin was negative. I do not suspect there is any significant pneumonia. However, treating for 7 days is not unreasonable. Recommend keeping the head of the bed elevated and a PPI for aspiration. I did have a lengthy discussion with the family regarding the patient's overall condition and CODE STATUS. There appears to be some discordant viewpoint with the family indicating that 1 of the sisters wants the patient to be a full code and the other sister wants the patient to be a DNR and DNI. I did recommended that they discuss amongst each other. I do not recommend aggressive measures in this patient such as CPR or mechanical ventilation as her overall prognosis would be very poor in the event that she had a cardiac or respiratory arrest. (2) Kyphoscoliosis: (3) Restrictive lung disease: (4) Aspiration pneumonitis: History of Present Illness Reason for Consultation: Acute respiratory failure Requesting Physician: Dr. Stephen Attending Physician: Claudio Stephen MD History of Present Illness 79-year-old female with a past medical history of polio syndrome, severe kyphoscoliosis, quadriplegia, depression, hypertension and seasonal allergies who presented to the hospital due to shortness of breath and respiratory failure. History from the patient is very limited. There are 4 sisters at bedside who are able to give some collateral history. Patient's daughter reports that the patient requires suctioning usually once a day. However, there is been issue with the suctioning tip that has been broken. She notes that a couple days ago she had desaturations into the low 80s and appeared to be short of breath. There has been some degree of coughing. I did ask them regarding the coughing and the family noted that the patient's cough is very weak. During this hospitalization, there is been no evidence of fever. She does have a leukocytosis of 16,660 today. Procalcitonin was negative. MRSA screen was negative. She is currently on Zosyn. A CT of her chest was done on 08/03/2019 which demonstrated significant streak artifact due to motion. No consolidative airspace disease was seen. There are secretions in the trachea and peribronchial thickening with areas of secretions in the lower lobes. Allergies Allergy/AdvReac Type Severity Reaction Status Date / Time doxycycline Allergy Severe swollen Verified 08/03/19 11:27 eyes Bactrim Allergy Unknown UNKNOWN Unverified 03/17/14 14:51 Cipro Allergy Unknown UNKNOWN Unverified 03/17/14 14:51 ciprofloxacin Allergy Unknown UNKNOWN Unverified 08/03/19 11:27 sulfamethoxazole Allergy Unknown UNKNOWN Unverified 08/03/19 11:27 trimethoprim Allergy Unknown UNKNOWN Unverified 08/03/19 11:27 Home Medications Home Medications Medication Instructions Recorded Confirmed Type cholecalciferol (vitamin D3) 25 1,000 units PO QAM 04/09/19 08/03/19 History mcg (1,000 unit) capsule docusate sodium 100 mg capsule 100 mg PO BID 04/09/19 08/03/19 History fluoxetine 20 mg capsule 20 mg PO QAM 04/09/19 08/03/19 History fluticasone propionate 50 1 sprays INTNAS DAILY PRN 04/09/19 08/03/19 History mcg/actuation nasal spray,suspension furosemide 20 mg tablet 20 mg PO QAM 04/09/19 08/03/19 History losartan 25 mg tablet 25 mg PO QAM 04/09/19 08/03/19 History tramadol 50 mg tablet 50 mg PO Q4H PRN tab 04/09/19 08/03/19 History Linzess 145 mcg PO QAM 04/18/19 08/03/19 History Mucinex DM 1 tab PO Q12H 08/03/19 08/03/19 History albuterol sulfate 2.5 mg INHALATION Q4H PRN 08/03/19 08/03/19 History levocetirizine 5 mg PO HS 08/03/19 08/03/19 History omeprazole 20 mg PO BID 08/03/19 08/03/19 History Patient History Medical History Cardiac murmur Depression Encounter for pre-operative examination GERD (gastroesophageal reflux disease) History of hypertension History of pneumonia "CHRONIC" Hx of shortness of breath IBS (irritable bowel syndrome) Kyphoscoliosis Osteoarthritis Polio WHEELCHAIR BOUND Restrictive lung disease Surgical History Difficult intravenous access PT VERY ANXIOUS ABOUT IV STICK ALSO! 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 Beliefs That Will Affect Care: None Current Living Situation: Alone Current Living Situation Comment: Personal care Other Information That Helps Us Care for You: No Feels Safe at Home: Yes Safety Concerns: Feels Safe At This Time Smoking Status: Current every day smoker Tobacco Type: cigarettes ; Cigarettes Per Day: 1 ; Do You Dip or Chew Tobacco: No ; Second Hand Exposure: No ; Tobacco Cessation Education Requested by Patient: No Hx Alcohol Use: No Hx Substance Use: No Review of Systems Review of Systems: Review of systems limited due to the patient's underlying current mental status Physical Exam Constitutional: Patient is elderly and frail-appearing. She has an oxygen mask in place. Eyes: PERRL, conjunctivae normal, anicteric sclerae ENMT: external ear and nose normal, oropharynx normal Neck: normal visual inspection Respiratory: Crackles particularly in the right lower lobe. Mildly tachypneic. Cardiovascular: Bradycardic. Regular rate and rhythm. No edema. Gastrointestinal (Abdomen): normal bowel sounds, soft, nontender, no hepatosplenomegaly Musculoskeletal: Patient is severely contorted. Significant underlying contr action of the upper extremities and legs Skin: no rashes, warm and dry Neurologic: PERRL, EOMI, accommodation nl, no face palsy, no dysarthria Psychiatric: Patient's mentation is a bit diminished. Results & Data ([facility]) Vital Signs (Past 12 Hours) Vital Signs Temp Pulse Pulse Resp BP BP BP 08/04/19 11:35 57 L 114/48 L 08/04/19 10:36 134/51 L 08/04/19 10:31 142 H 134/51 L 08/04/19 08:16 97.7 F 94 H 20 155/48 H 08/04/19 07:11 68 20 08/04/19 03:01 98.1 F 91 H 21 164/50 H 08/04/19 00:42 21 Pulse Ox 08/04/19 11:35 85 L 08/04/19 10:36 93 08/04/19 10:31 08/04/19 08:16 95 08/04/19 07:11 95 08/04/19 03:01 92 08/04/19 00:42 98 I personally reviewed patient's chest imaging, prior pulmonary function testing and labs. PG Care Time/CCT Total # of Minutes Spent Total Time Spent with Patient: Total time spent is greater than 50% in coordination of care (as documented) at patient's floor/unit and/or counseling patient: Coding [place] [address] Initial Inpt Care Lvl 3 Patient Type Established Diagnoses Acute hypoxemic respiratory failure J96.01 Kyphoscoliosis M41.9 Restrictive lung disease J98.4 Aspiration pneumonitis J69.0
--- NOTE | 2019-08-04 12:57 | Electrocardiogram Report ---
Test Reason : Blood Pressure : / mmHG Vent. Rate : 086 BPM Atrial Rate : 086 BPM P-R Int : 160 ms QRS Dur : 078 ms QT Int : 512 ms P-R-T Axes : 066 049 174 degrees QTc Int : 612 ms Normal sinus rhythm Left atrial enlargement Markedly Prolonged QT Abnormal ECG When compared with ECG of 03-AUG-2019 11:02, Premature atrial complexes are no longer Present T wave inversion more evident in Anterior leads QT has lengthened Confirmed by Luca Moraes ([id number]) on 08/04/2019 12:56:52 PM Referred By: REFERRED SELF Confirmed By:Luca Moraes
--- NOTE | 2019-08-04 14:37 | Cardiology Consultation ---
Date of Consultation August 04, 2019 Assessment & Plan (1) NSVT (nonsustained ventricular tachycardia): Patient now having significant prolonged runs of nonsustained ventricular tachycardia. Asymptomatic Current respiratory status likely contributing factor however, I do believe this represents a significant increase in the likelihood of mortality during this hospital admission. Have given 1 dose of IV Lopressor 5 mg x 1 with good response We will give bolus of amiodarone to continue ventricular tachycardia suppression. After amiodarone bolus patient became significantly bradycardic without further ventricular tachycardia. We will discontinue IV amiodarone and start amnio 200 mg p.o. 3 times daily now I personally had a lengthy discussion with the patient and her family at bedside. I counseled them on the increasing likelihood of mortality given the new cardiac arrhythmia. I discussed CODE STATUS and whether or not she would want heroic measures used to prolong her life given the very low likelihood of any significant recovery. The patient's daughter deferred to the patient's decision and she does not have an active medical power of insurance attorney. The patient states that she would want heroic measures taken but would not be interested in prolonged intubation. CODE STATUS will remain full code as per the patient's wishes. May consider palliative care consultation in the a.m. to further discuss goals of care. (2) Acute hypoxemic respiratory failure: (3) Aspiration pneumonitis: (4) Kyphoscoliosis: (5) Restrictive lung disease: (6) Chronic complete flaccid quadriplegia: (7) Polio: History of Present Illness Reason for Consultation: Nonsustained ventricular tachycardia Requesting Physician: Dr. Stephen Attending Physician: Claudio Stephen MD History of Present Illness It was my pleasure to see Mrs. Alanis in consultation today August 04, 2019. She is a very pleasant 79-year-old woman who was admitted to [facility] on 08/03/2019 with complaints of shortness of breath. She was found to have bronchitis with questionable aspiration and mucous plugging. She was admitted to telemetry and appropriate pulmonary treatment was instituted. While on telemetry she started having runs of nonsustained ventricular tachycardia and cardiology was consulted. At the time of examination the patient is resting comfortably upright in bed. Her sister, daughter and caregiver at the bedside. Patient states that she is feeling okay at this time. States that shortness of breath is improved since admission. Denies any other complaints of palpitations, lightheadedness, dizziness or syncope. States that she is having some pleuritic left-sided chest pain with a sharp stabbing pain on the left with inhalation. She notes that this is common given her history of scoliosis. Allergies Allergy/AdvReac Type Severity Reaction Status Date / Time doxycycline Allergy Severe swollen Verified 08/03/19 11:27 eyes Bactrim Allergy Unknown UNKNOWN Unverified 03/17/14 14:51 Cipro Allergy Unknown UNKNOWN Unverified 03/17/14 14:51 ciprofloxacin Allergy Unknown UNKNOWN Unverified 08/03/19 11:27 sulfamethoxazole Allergy Unknown UNKNOWN Unverified 08/03/19 11:27 trimethoprim Allergy Unknown UNKNOWN Unverified 08/03/19 11:27 Home Medications Home Medications Medication Instructions Recorded Confirmed Type cholecalciferol (vitamin D3) 25 1,000 units PO QAM 04/09/19 08/03/19 History mcg (1,000 unit) capsule docusate sodium 100 mg capsule 100 mg PO BID 04/09/19 08/03/19 History fluoxetine 20 mg capsule 20 mg PO QAM 04/09/19 08/03/19 History fluticasone propionate 50 1 sprays INTNAS DAILY PRN 04/09/19 08/03/19 History mcg/actuation nasal spray,suspension furosemide 20 mg tablet 20 mg PO QAM 04/09/19 08/03/19 History losartan 25 mg tablet 25 mg PO QAM 04/09/19 08/03/19 History tramadol 50 mg tablet 50 mg PO Q4H PRN tab 04/09/19 08/03/19 History Linzess 145 mcg PO QAM 04/18/19 08/03/19 History Mucinex DM 1 tab PO Q12H 08/03/19 08/03/19 History albuterol sulfate 2.5 mg INHALATION Q4H PRN 08/03/19 08/03/19 History levocetirizine 5 mg PO HS 08/03/19 08/03/19 History omeprazole 20 mg PO BID 08/03/19 08/03/19 History Patient History Medical History Acute hypoxemic respiratory failure Aspiration pneumonitis Cardiac murmur Depression Encounter for pre-operative examination GERD (gastroesophageal reflux disease) History of hypertension History of pneumonia "CHRONIC" Hx of shortness of breath IBS (irritable bowel syndrome) Kyphoscoliosis Osteoarthritis Polio WHEELCHAIR BOUND Restrictive lung disease Surgical History Difficult intravenous access PT VERY ANXIOUS ABOUT IV STICK ALSO! 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 Beliefs That Will Affect Care: None marital status: Current Living Situation: Alone Current Living Situation Comment: Personal care Other Information That Helps Us Care for You: No Feels Safe at Home: Yes Safety Concerns: Feels Safe At This Time Smoking Status: Current every day smoker Tobacco Type: cigarettes ; Cigarettes Per Day: 1 ; Do You Dip or Chew Tobacco: No ; Second Hand Exposure: No ; Tobacco Cessation Education Requested by Patient: No Hx Alcohol Use: No Hx Substance Use: No Review of Systems Review of Systems: All systems reviewed & are unremarkable except as noted in HPI & below Physical Exam Physical Exam: General: Awake, alert and oriented x 3. No acute distress. Confused at times. Quadriplegic with significant scoliosis. HEENT: Normocephalic, atraumatic. Pupils equal, round and reactive to light and accommodation. Extraocular muscles are intact. Anicteric sclera. Moist mucous membranes. Neck: No JVD. No bruit. Cardiovascular: Regular but distant due to body habitus unable appreciate murmurs rubs or gallops. Pulmonary: Poor air movement with scant bibasilar crackles. No rhonchi or wheezing. Abdomen: Bowel sounds x 4, soft. No rebound, guarding or tenderness. No organomegaly. Extremities: No clubbing, cyanosis or edema. +2 pedal pulses bilaterally. Skin: Warm and dry. Results & Data ([facility]) Vital Signs (Past 12 Hours) Vital Signs Temp Pulse Pulse Resp BP BP BP 08/04/19 12:57 66 16 08/04/19 11:35 57 L 114/48 L 08/04/19 10:36 134/51 L 08/04/19 10:31 142 H 134/51 L 08/04/19 08:16 36.5 C 94 H 20 155/48 H 08/04/19 08:00 86 08/04/19 07:11 68 20 08/04/19 03:01 36.7 C 91 H 21 164/50 H Pulse Ox 08/04/19 12:57 96 08/04/19 11:35 85 L 08/04/19 10:36 93 08/04/19 10:31 08/04/19 08:16 95 08/04/19 08:00 08/04/19 07:11 95 08/04/19 03:01 92 Laboratory Results Laboratory Results - last 24 hr 08/03/19 08/03/19 08/03/19 17:03 22:40 23:00 WBC RBC Hgb Hct MCV MCH MCHC RDW Std Deviation RDW Coeff of Bryan Plt Count MPV Immature Gran % (Auto) Neut % (Auto) Lymph % (Auto) [place] % (Auto) Eos % (Auto) Baso % (Auto) Immature Gran # (Auto) Neut # (Auto) Lymph # (Auto) [place] # (Auto) Eos # (Auto) Baso # (Auto) Sodium Potassium Chloride Carbon Dioxide Anion Gap BUN Creatinine Est Cr Clr Drug Dosing Est GFR ( Amer) Est GFR (Non-Af Amer) BUN/Creatinine Ratio Glucose Calcium Troponin I 0.108 H* 0.244 H* Nasal Screen MRSA (PCR) Negative 08/04/19 08/04/19 08/04/19 06:39 06:39 12:30 WBC 16.66 H RBC 4.60 Hgb 14.2 Hct 41.7 MCV 90.7 MCH 30.9 MCHC 34.1 RDW Std Deviation 53.1 H RDW Coeff of Bryan 16.2 H Plt Count 228 MPV 10.1 Immature Gran % (Auto) 0.2 Neut % (Auto) 89.9 Lymph % (Auto) 3.1 [place] % (Auto) 6.7 Eos % (Auto) 0.0 Baso % (Auto) 0.1 Immature Gran # (Auto) 0.03 H Neut # (Auto) 14.97 H Lymph # (Auto) 0.52 L [place] # (Auto) 1.12 H Eos # (Auto) 0.00 Baso # (Auto) 0.02 Sodium 136 Potassium 4.0 Chloride 102 Carbon Dioxide 22 Anion Gap 12.0 H BUN 29 H Creatinine 0.73 Est Cr Clr Drug Dosing 32.5 Est GFR ( Amer) 90.2 Est GFR (Non-Af Amer) 77.8 BUN/Creatinine Ratio 40.0 H Glucose 83 Calcium 8.4 L Troponin I 0.383 H* 0.772 H* Nasal Screen MRSA (PCR) Medications Administered Current Inpatient Medications Acetaminophen (Tylenol) 650 mg PO Q4H PRN PRN Reason: Pain or Fever Stop: 09/02/19 15:43 Acetylcysteine (Mucomyst 10%) 3 ml INH Q12R [facility] Stop: 09/02/19 15:43 Last Admin: 08/04/19 07:10 Dose: 3 ml Documented by: Docusate Sodium (Colace) 100 mg PO BID [facility] Stop: 09/02/19 20:59 Last Admin: 08/04/19 08:09 Dose: 100 mg Documented by: Fluoxetine HCl (Prozac) 20 mg PO QAM [facility] Stop: 09/03/19 08:59 Last Admin: 08/04/19 08:13 Dose: 20 mg Documented by: Fluticasone Propionate (Flonase) 1 sprays FARIDEH DAILY PRN PRN Reason: Allergic Symptoms Stop: 09/02/19 15:43 Guaifenesin (Mucinex) 600 mg PO Q12 [facility] Stop: 09/02/19 20:59 Last Admin: 08/04/19 08:13 Dose: 600 mg Documented by: Heparin Sodium (Porcine) (Heparin Sodium (Porcine)) 5,000 units SQ Q12 [facility] Stop: 09/02/19 20:59 Last Admin: 08/04/19 08:20 Dose: Not Given Documented by: Sodium Chloride (Nss) 500 mls @ 60 mls/hr IV .Q8H20M [facility] Stop: 09/02/19 16:29 Last Infusion: 08/04/19 11:52 Dose: 0 mls/hr Documented by: Piperacillin Sod/Tazobactam (Sod 3.375 gm/ Dextrose) 115 mls @ 28.75 mls/hr IV Q8H [facility]; Protocol Stop: 08/10/19 17:59 Last Infusion: 08/04/19 11:51 Dose: 0 mls/hr Documented by: Amiodarone HCl/Dextrose (Nexterone / D5w) 360 mg in 200 mls @ 33.333 mls/hr IV .Q6H [facility] Stop: 08/04/19 16:45 Last Infusion: 08/04/19 14:11 Dose: 0 mg/min, 0 mls/hr Documented by: Amiodarone HCl/Dextrose (Nexterone / D5w) 360 mg in 200 mls @ 16.667 mls/hr IV .Q12H [facility] Stop: 09/03/19 16:45 Ioversol (Optiray 320 125ml) 120 ml IV ONCE PRN PRN Reason: Interaction Checking Stop: 08/07/19 14:23 Last Admin: 08/03/19 14:24 Dose: 120 ml Documented by: Ipratropium [place] (Atrovent 0.02% 0.5mg/2.5ml) 0.5 mg INH Q6R [facility] Stop: 09/02/19 15:43 Last Admin: 08/04/19 12:52 Dose: 0.5 mg Documented by: Levalbuterol HCl (Xopenex 0.63 Mg/3 Ml Neb) 0.63 mg NEB Q6R [facility] Stop: 09/02/19 15:43 Last Admin: 08/04/19 12:51 Dose: 0.63 mg Documented by: Linaclotide (Linzess) 144 mcg PO QAM [facility] Stop: 09/03/19 08:59 Last Admin: 08/04/19 08:11 Dose: 144 mcg Documented by: Losartan Potassium (Cozaar) 50 mg PO QAM [facility] Stop: 09/03/19 03:59 Last Admin: 08/04/19 05:03 Dose: 50 mg Documented by: Menthol (Nice) 1 oscar BUCCAL Q2H PRN PRN Reason: Sore Throat Stop: 09/03/19 06:05 Last Admin: 08/04/19 06:49 Dose: 1 ocsar Documented by: Miscellaneous (Order Awaiting Action) 1 ea N/A QS [facility] Stop: 09/03/19 00:00 Last Admin: 08/04/19 08:09 Dose: Not Given Documented by: Miscellaneous Information (Consult) 1 ea N/A UD PRN PRN Reason: Consult Stop: 09/02/19 16:11 Pantoprazole Sodium (Protonix) 40 mg PO DAILY [facility] Stop: 09/03/19 08:59 Last Admin: 08/04/19 08:12 Dose: 40 mg Documented by: Polyethylene Glycol (Miralax Powder Packet) 17 gm PO DAILY PRN PRN Reason: Constipation Stop: 09/02/19 15:43 Tramadol HCl (Ultram) 50 mg PO Q4H PRN PRN Reason: pain Stop: 09/02/19 15:43 Last Admin: 08/04/19 13:13 Dose: 50 mg Documented by: Vitamin D (Vitamin D3) 1,000 units PO QAM [facility] Stop: 09/03/19 08:59 Last Admin: 08/04/19 08:14 Dose: 1,000 units Documented by:
[2019-08-04] MEDS ORDERED: ATROPINE SULFATE 0.1 MG/ML 10ML SYR IV ONE (14:51)
[2019-08-04] MEDS ORDERED: SODIUM CHLORIDE 0.9% 1,000 ML IV SCH (15:15)
--- NOTE | 2019-08-04 18:08 | Hospitalist Progress Note ---
Date of Service August 04, 2019 Assessment & Plan (1) Hypoxia: (2) Bronchitis: (1) Acute Respiratory Failure with Hypoxia (2) Bronchitis: Possible Aspiration Pneumonia: Pt is 79 y/o F with PMH HTN, polio, quadriplegia, restrictive lung disease secondary to kyphoscoliosis, GERD, depression, IBS presented to ER with complaint of shortness of breath x 1 day. Worse this morning after daily suctioning with increased SOB, diaphoresis and reported oxygen saturation in the 80s. In ER T: 36.4, R: 26 down to 18, P: 96, BP: 174/70, 86% on RA up to 96% on 3L NC WBC: 14.9, procalcitonin <0.05, lactate not obtained secondary to multiple needle sticks and unable to obtain. Negative influenza CXR: no acute changes CTA Chest: There is no evidence of pulmonary embolus in the main, lobar, or segmental pulmonary arteries. Moderate to severe thoracolumbar scoliosis distorts the thoracic cage.There is no focal airspace consolidation or pleural effusion. There are layering secretions in the trachea. Additionally, there is diffuse peribronchial thickening with fluid and secretions/mucous plugging within the upper and lower lobe bronchi. Foci of ill-defined parenchymal nodularity are of indeterminate significance and similar to the 02/25/2019 examination. DDX: Bronchitis, aspiration, Mucous plugging -- remains on 4 L nasal cannula -- cultures pending -- continue Zosyn, Nebs, Mucomyst, Mucinex -- Pulm consulted recommend cough assist device, speech therapy eval, PPI (3) Nonsustained V tach - with mild troponin elevation likely from Demand Ischemia - precipitated by hypoxia, respiratory issues - Cardiology consulted Lopressor IV given, then Amiodarone drip but patient developed bradycardia plan to change to PO Amiodarone Echo ordered (4) Restrictive lung disease: (5) Kyphoscoliosis: History restrictive lung disease secondary to kyphoscoliosis (6) GERD (gastroesophageal reflux disease): -Continue PPI (7) IBS (irritable bowel syndrome): -Continue Linzess, stool softeners -MiraLAX as needed for constipation (8) Depression: -Continue fluoxetine DVT Prophylaxis -Heparin SQ case and plan of care discussed with patient and her daughter all questions answered she is understanding, agreeable, comfortable with the plan of care Admission and Anticipated Discharge Date Admission Date: August 03, 2019 Subjective ff up for hypoxia, bronchitis, etc. noted to have irregular rhythm, possible a fib, NSVT? seen resting in bed, comfortable, more alert and awake, oriented states breathing is improved today has occasional cough no chest pain, palpitations, dizziness no other symptoms Review of Systems Review of Systems: All systems reviewed & are unremarkable except as noted in HPI & below Physical Exam Physical Exam: General- oriented x 2, not in distress, speaks in sentences with no effort or accessory muscle use Eyes- anicteric Neck- no JVD Lungs- (+) mild rhonchi BL no wheezing Heart- normal rate, irregular rhythm; no murmurs Abdomen- normal bowel sounds, nondistended, soft, nontender Extremities- no pretibial edema, no calf tenderness Neuro- alert, oriented x 3; quadriplegic Skin- warm & dry Results & Data ([facility]) Vital Signs (Past 12 Hours) Vital Signs Temp Pulse Pulse Resp BP BP Pulse Ox 08/04/19 15:44 08/04/19 15:14 36.3 C L 56 L 26 H 141/47 H 99 08/04/19 15:13 54 L 08/04/19 12:57 66 16 96 08/04/19 11:35 57 L 114/48 L 85 L 08/04/19 10:36 134/51 L 93 08/04/19 10:31 142 H 134/51 L 08/04/19 08:16 36.5 C 94 H 20 155/48 H 95 08/04/19 08:00 86 08/04/19 07:11 68 20 95 Pulse Ox 08/04/19 15:44 97 08/04/19 15:14 08/04/19 15:13 08/04/19 12:57 08/04/19 11:35 08/04/19 10:36 08/04/19 10:31 08/04/19 08:16 08/04/19 08:00 08/04/19 07:11 Laboratory Results Laboratory Results - last 24 hr 08/03/19 08/03/19 08/04/19 22:40 23:00 06:39 WBC 16.66 H RBC 4.60 Hgb 14.2 Hct 41.7 MCV 90.7 MCH 30.9 MCHC 34.1 RDW Std Deviation 53.1 H RDW Coeff of Bryan 16.2 H Plt Count 228 MPV 10.1 Immature Gran % (Auto) 0.2 Neut % (Auto) 89.9 Lymph % (Auto) 3.1 Love % (Auto) 6.7 Eos % (Auto) 0.0 Baso % (Auto) 0.1 Immature Gran # (Auto) 0.03 H Neut # (Auto) 14.97 H Lymph # (Auto) 0.52 L Love # (Auto) 1.12 H Eos # (Auto) 0.00 Baso # (Auto) 0.02 Sodium Potassium Chloride Carbon Dioxide Anion Gap BUN Creatinine Est Cr Clr Drug Dosing Est GFR ( Amer) Est GFR (Non-Af Amer) BUN/Creatinine Ratio Glucose Calcium Troponin I 0.244 H* Nasal Screen MRSA (PCR) Negative 08/04/19 08/04/19 06:39 12:30 WBC RBC Hgb Hct MCV MCH MCHC RDW Std Deviation RDW Coeff of Bryan Plt Count MPV Immature Gran % (Auto) Neut % (Auto) Lymph % (Auto) Love % (Auto) Eos % (Auto) Baso % (Auto) Immature Gran # (Auto) Neut # (Auto) Lymph # (Auto) Love # (Auto) Eos # (Auto) Baso # (Auto) Sodium 136 Potassium 4.0 Chloride 102 Carbon Dioxide 22 Anion Gap 12.0 H BUN 29 H Creatinine 0.73 Est Cr Clr Drug Dosing 32.5 Est GFR ( Amer) 90.2 Est GFR (Non-Af Amer) 77.8 BUN/Creatinine Ratio 40.0 H Glucose 83 Calcium 8.4 L Troponin I 0.383 H* 0.772 H* Nasal Screen MRSA (PCR)
[2019-08-05] MEDS: IPRATROPIUM BROMIDE NEB SOLN 0.02% 2.5 ML VIAL INH SCH ×4 (00:46→20:00)
[2019-08-05] MEDS: LEVALBUTEROL HCL 0.63 MG/3 ML NEB NEB SCH ×4 (00:47→20:00)
[2019-08-05] MEDS: PIPERACILLIN/TAZOBACTAM 3.375 GM in DEXTROSE 5% 100 ML IV SCH (01:42)
[2019-08-05] MEDS: TRAMADOL HCL 50 MG TABLET PO PRN (01:45)
[2019-08-05] MEDS: ACETYLCYSTEINE 10% INHAL SOLN 4 ML **DISPENSED BY RESP. INH SCH ×2 (07:04→20:00)
[2019-08-05] MEDS: PANTOprazole 40 MG TAB PO SCH (07:50)
[2019-08-05] MEDS: LOSARTAN POTASSIUM 50 MG TAB PO SCH (07:51)
[2019-08-05] MEDS: LINACLOTIDE 72 MCG CAPSULE PO SCH (07:51)
[2019-08-05] MEDS: DOCUSATE SODIUM 100 MG CAP PO SCH ×2 (07:51→20:25)
[2019-08-05] MEDS: guaiFENesin 600 MG TABCR PO SCH ×2 (07:51→20:27)
[2019-08-05] MEDS: CHOLECALCIFEROL 1,000 UNITS 25 MCG TAB PO SCH (07:52)
[2019-08-05] MEDS: FLUOXETINE HCL 20 MG CAP PO SCH (07:52)
[2019-08-05] MEDS: HEPARIN SOD 5,000 UNIT/0.5 ML VIAL SQ SCH ×3 (07:52→23:52)
[2019-08-05] MEDS ORDERED: AUGMENTIN~CONSULT PHARMACY PRN (09:40)
--- NOTE | 2019-08-05 09:41 | Hospitalist Progress Note ---
Date of Service August 05, 2019 Assessment & Plan (1) Hypoxia: (2) Bronchitis: (1) Acute Respiratory Failure with Hypoxia (2) Bronchitis: Possible Aspiration Pneumonia: Pt is 79 y/o F with PMH HTN, polio, quadriplegia, restrictive lung disease secondary to kyphoscoliosis, GERD, depression, IBS presented to ER with complaint of shortness of breath x 1 day. Worse this morning after daily suctioning with increased SOB, diaphoresis and reported oxygen saturation in the 80s. In ER T: 36.4, R: 26 down to 18, P: 96, BP: 174/70, 86% on RA up to 96% on 3L NC WBC: 14.9, procalcitonin <0.05, lactate not obtained secondary to multiple needle sticks and unable to obtain. Negative influenza CXR: no acute changes CTA Chest: There is no evidence of pulmonary embolus in the main, lobar, or segmental pulmonary arteries. Moderate to severe thoracolumbar scoliosis distorts the thoracic cage.There is no focal airspace consolidation or pleural effusion. There are layering secretions in the trachea. Additionally, there is diffuse peribronchial thickening with fluid and secretions/mucous plugging within the upper and lower lobe bronchi. Foci of ill-defined parenchymal nodularity are of indeterminate significance and similar to the 02/25/2019 examination. DDX: Bronchitis, aspiration, Mucous plugging --Clinically improved today compared to yesterday Continue to wean off oxygen --Blood cultures: Pending --Continue from Zosyn to Augmentin Continue nebs, Mucomyst, Mucinex Continue chest physical therapy, CoughAssist device -- Pulm consulted -- Speech therapist consulted, recommendations noted, please include in discharge summary (3) Nonsustained V tach Cardiomyopathy, newly diagnosed - with mild troponin elevation likely from Demand Ischemia - precipitated by hypoxia, respiratory issues, in the setting of newly diagnosed cardiomyopathy -Echo: Cardiomyopathy, EF 25 to 30% - Cardiology consulted Lopressor IV given, then Amiodarone drip but patient developed bradycardia--> Lopressor and amiodarone held Nonsustained V. tach not observed today Continue to monitor closely -Palliative care consulted Also discussed CODE STATUS with patient's daughter She will readdress CODE STATUS with her mom (4) Restrictive lung disease: (5) Kyphoscoliosis: History restrictive lung disease secondary to kyphoscoliosis (6) GERD (gastroesophageal reflux disease): -Continue PPI (7) IBS (irritable bowel syndrome): -Continue Linzess, stool softeners -MiraLAX as needed for constipation (8) Depression: -Continue fluoxetine DVT Prophylaxis -Heparin SQ case and plan of care discussed with patient and her daughter all questions answered she is understanding, agreeable, comfortable with the plan of care Admission and Anticipated Discharge Date Admission Date: August 03, 2019 Subjective Follow-up for hypoxic respiratory failure, acute bronchitis, nonsustained V. tach Seen with patient's niece and sisters at the bedside Awake, alert, oriented x3, on 4 L nasal cannula States she feels improved today compared to yesterday Breathing has improved, less cough No chest pain, palpitations, dizziness Appetite improving No other symptoms Review of Systems Review of Systems: All systems reviewed & are unremarkable except as noted in HPI & below Physical Exam Physical Exam: General- oriented x 3, not in distress, speaks in sentences with no effort or accessory muscle use Eyes- anicteric Neck- no JVD Lungs-rhonchi bilaterally but improved compared to yesterday, no wheezing Heart- normal rate, regular rhythm; no murmurs Abdomen- normal bowel sounds, nondistended, soft, nontender Extremities- no pretibial edema, no calf tenderness Neuro- alert, oriented x 3; positive quadriplegia Skin- warm & dry Results & Data ([facility]) Vital Signs (Past 12 Hours) Vital Signs Temp Pulse Pulse Resp BP Pulse Ox 08/05/19 08:05 37 C 71 16 151/45 H 96 08/05/19 08:00 36.8 C 08/05/19 06:55 68 18 96 08/05/19 03:52 36.5 C 74 21 110/51 L 97 08/05/19 03:22 99/57 L 08/05/19 00:49 69 20 92 08/04/19 23:34 36.4 C L 72 24 108/50 L 97 08/04/19 23:00 65 Laboratory Results Laboratory Results - last 24 hr 08/05/19 08/05/19 08/05/19 06:03 09:40 09:40 WBC 19.93 H RBC 4.12 L Hgb 12.6 Hct 36.5 L MCV 88.6 MCH 30.6 MCHC 34.5 RDW Std Deviation 53.1 H RDW Coeff of Bryan 16.2 H Plt Count 209 MPV 10.3 Immature Gran % (Auto) 0.3 Neut % (Auto) 90.0 Lymph % (Auto) 3.2 Buchanan % (Auto) 6.4 Eos % (Auto) 0.0 Baso % (Auto) 0.1 Immature Gran # (Auto) 0.06 H Neut # (Auto) 17.95 H Lymph # (Auto) 0.63 L Buchanan # (Auto) 1.28 H Eos # (Auto) 0.00 Baso # (Auto) 0.01 ABG pH ABG pCO2 ABG pO2 ABG HCO3 ABG O2 Saturation ABG Base Excess David Test Barometric Pressure Oxygen Given Sodium 136 Potassium 2.9 L D Chloride 103 Carbon Dioxide 23 Anion Gap 10.0 BUN 35 H Creatinine 0.90 Est Cr Clr Drug Dosing 26.4 Est GFR ( Amer) 70.0 Est GFR (Non-Af Amer) 60.4 BUN/Creatinine Ratio 38.6 H Glucose 131 H Calcium 8.7 Magnesium 2.1 08/05/19 18:54 WBC RBC Hgb Hct MCV MCH MCHC RDW Std Deviation RDW Coeff of Bryan Plt Count MPV Immature Gran % (Auto) Neut % (Auto) Lymph % (Auto) Buchanan % (Auto) Eos % (Auto) Baso % (Auto) Immature Gran # (Auto) Neut # (Auto) Lymph # (Auto) Buchanan # (Auto) Eos # (Auto) Baso # (Auto) ABG pH 7.45 ABG pCO2 33 L ABG pO2 55 L ABG HCO3 22 ABG O2 Saturation 90.0 ABG Base Excess -0.9 David Test Pos Barometric Pressure 725.8 Oxygen Given 2 L Sodium Potassium Chloride Carbon Dioxide Anion Gap BUN Creatinine Est Cr Clr Drug Dosing Est GFR ( Amer) Est GFR (Non-Af Amer) BUN/Creatinine Ratio Glucose Calcium Magnesium
[2019-08-05 09:58] LABS: Basophils # (auto) 0.01 K/uL (0-0.2); Basophils % (auto) 0.1 %; Hematocrit (blood only) 36.5 % (37-47); Hemoglobin 12.6 g/dL (12.0-16.0); Immature Granulocytes # (auto) 0.06 K/uL (0.00-0.02); Immature Granulocytes % (auto) 0.3 %; Lymphocytes # (auto) 0.63 K/uL (1.2-3.4); Lymphocytes % (auto) 3.2 %; Mean Corpuscular Hemoglobin 30.6 pg (25-34); Mean Corpuscular Hgb Conc 34.5 g/dL (32-36); Mean Corpuscular Volume 88.6 fL (80-100); Mean Platelet Volume 10.3 fL (7.4-10.4); Monocytes # (auto) 1.28 K/uL (0.11-0.59); Monocytes % (auto) 6.4 %; Neutrophils # (auto) 17.95 K/uL (1.4-6.5); Platelet Count 209 K/uL (130-400); RDW Coefficient of Variation 16.2 % (11.5-14.5); RDW Standard Deviation 53.1 fL (36.4-46.3); Red Blood Count 4.12 M/uL (4.2-5.4); White Blood Count 19.93 K/uL (4.8-10.8)
--- NOTE | 2019-08-05 10:26 | Electrocardiogram Report ---
Test Reason : Blood Pressure : / mmHG Vent. Rate : 090 BPM Atrial Rate : 090 BPM P-R Int : 158 ms QRS Dur : 076 ms QT Int : 606 ms P-R-T Axes : 061 045 164 degrees QTc Int : 741 ms Poor data quality, interpretation may be adversely affected Sinus rhythm with frequent , and consecutive Premature ventricular complexes Left atrial enlargement Abnormal ECG When compared with ECG of 04-AUG-2019 06:45, Premature ventricular complexes are now Present QT has lengthened Confirmed by Jackson Dillard ([id number]) on 08/05/2019 10:26:00 AM Referred By: REFERRED SELF Confirmed By:Jackosn Dillard
[2019-08-05 10:27] LABS: BUN Creatinine Ratio 38.6 (10-20); Calcium 8.7 mg/dl (8.5-10.1); Creatinine Clr Calc Pharmacy 26.4 ml/min; Est GFR (Non-African American) 60.4; Potassium 2.9 mmol/L (3.5-5.1)
--- NOTE | 2019-08-05 10:28 | Electrocardiogram Report ---
Test Reason : Blood Pressure : / mmHG Vent. Rate : 120 BPM Atrial Rate : 093 BPM P-R Int : 000 ms QRS Dur : 094 ms QT Int : 308 ms P-R-T Axes : 000 -41 208 degrees QTc Int : 435 ms Poor data quality, interpretation may be adversely affected Possible Atrial fibrillation with rapid ventricular response converting to sinus rhythm with PVCs Left axis deviation Abnormal ECG When compared with ECG of 04-AUG-2019 07:28, (unconfirmed) Significant changes have occurred Confirmed by Jackson Dillard ([id number]) on 08/05/2019 10:27:59 AM Referred By: REFERRED SELF Confirmed By:Jackson Dillard
--- NOTE | 2019-08-05 13:09 | Cardiology Progress Note ---
Date of Service August 05, 2019 Assessment & Plan (1) NSVT (nonsustained ventricular tachycardia): Ventricular tachycardia resolved with initiation of amiodarone, however, patient became significantly bradycardic and amiodarone was discontinued. Has not had any further significant runs of ventricular tachycardia overnight so we will continue to follow. We will hold off on addition of beta-rakesh or amiodarone at this time. Once again I discussed goals of care with the patient and her family her niece and 2 sisters are in agreement that they do not want any invasive procedures performed and are leaning towards comfort care, however, the patient still prefers to be full code. Appreciate input from our palliative care colleagues. (2) Acute hypoxemic respiratory failure: (3) Aspiration pneumonitis: (4) Kyphoscoliosis: (5) Restrictive lung disease: (6) Chronic complete flaccid quadriplegia: (7) Polio: Subjective Patient seen and examined resting flat in bed. Denies any complaints overnight specifically denying any chest pain, shortness of breath, palpitations, lightheadedness, dizziness or syncope. Telemetry reviewed normal sinus rhythm without sustained ventricular tachycardia. Review of Systems Review of Systems: All systems reviewed & are unremarkable except as noted in HPI & below Physical Exam Physical Exam: General: Awake, alert and oriented x 3. No acute distress. Quadriplegia HEENT: Normocephalic, atraumatic. Pupils equal, round and reactive to light and accommodation. Extraocular muscles are intact. Anicteric sclera. Moist mucous membranes. Neck: No JVD. No bruit. Cardiovascular: Regular. Positive S-4. Normal S-1 and S-2. No S-3. No murmurs or rubs. Pulmonary: Clear to auscultation B/L. No rales, rhonchi or wheezing Abdomen: Bowel sounds x 4, soft. No rebound, guarding or tenderness. No organomegaly. Extremities: No clubbing, cyanosis or edema. +2 pedal pulses bilaterally. Skin: Warm and dry. Results & Data Vital Signs (Past 12 Hours) Vital Signs Temp Pulse Resp BP Pulse Ox 08/05/19 11:43 36.5 C 70 16 125/42 L 95 08/05/19 08:05 37 C 71 16 151/45 H 96 08/05/19 08:00 36.8 C 08/05/19 06:55 68 18 96 08/05/19 03:52 36.5 C 74 21 110/51 L 97 08/05/19 03:22 99/57 L
--- NOTE | 2019-08-05 13:45 | Pulmonology Progress Note ---
Date of Service August 05, 2019 Assessment & Plan (1) Acute hypoxemic respiratory failure: --Acute hypoxic respiratory failure Likely secondary to underlying severe kyphoscoliosis and neuromuscular disease from underlying polio. Patient has very poor cough and recently she is saying that she is having occasional dysphagia as well. I think there is a underlying silent aspiration going on at the same time. CT chest did not show any clear infiltrate only bronchial thickening which might be secondary to bronchitis. Procalcitonin negative. Influenza negative. Continue with aspiration precautions. Keep the head of the bed elevated at 30 degrees. Frequent suctioning. WBC count is still going up I do not think this is because of the pulmonary source. Need to look for other reason for leukocytosis. Patient had pulmonary function tests done as an outpatient on 05/07/2019 which showed FEV1 of only 43% predicted with FVC 36% predicted. Patient was not able to do lung volumes as he was not able to fit in the body box. This likely represents restrictive lung disease because of her underlying kyphoscoliosis and polio. Given that the patient's FVC is only 36% predicted patient will qualify for bilevel at home. We will get social work involved. --Active smoker Advised to quit Patient usually smokes 1 to 2 cigarettes a day has never gone beyond that but she has been doing this for very long time Plan: Recommend swallow eval. Get social work involved to get BiPAP for the patient at home prior to discharge. (2) Kyphoscoliosis: (3) Restrictive lung disease: (4) Aspiration pneumonitis: Subjective Patient seen and examined at bedside. No acute distress, no adverse events ov ernight. Patient states that she is feeling better now. Shortness of breath improved little bit. She still complains of cough when she is eating. Occasional dysphagia. Denies any chest pain, no headache, no blurry vision, no nausea or vomiting. Patient was saturating 97% on 3 L nasal cannula at the time of examination at rest. Review of Systems Review of Systems: All systems reviewed & are unremarkable except as noted in HPI & below Physical Exam Physical Exam: Constitutional: No acute distress HEENT: EOMI, PERRLA, neck deviated to the left Respiratory system: Decreased air entry bilaterally, positive rhonchi bilaterally, positive mild crackles bilateral lower lobes CVS: S1-S2 positive, positive 2 out of 6 systolic ejection murmur appreciated the aorta, accentuated P2 Abdomen: Soft, nontender, nondistended, positive bowel sounds x4 Extremities: +2 pulses bilaterally radialis/ dorsalis pedis, no cyanosis, cold extremities, +1 edema bilateral lower extremity Neuro: Awake alert oriented x3 talking in full sentences Psych: Normal mood and affect Skin: no rashes, warm and dry Lymphatic: no cervical or axillary lymphadenopathy Results & Data ([facility]) Vital Signs (Past 12 Hours) Vital Signs Temp Pulse Resp BP Pulse Ox 08/05/19 13:26 86 18 95 08/05/19 11:43 36.5 C 70 16 125/42 L 95 08/05/19 08:05 37 C 71 16 151/45 H 96 08/05/19 08:00 36.8 C 08/05/19 06:55 68 18 96 08/05/19 03:52 36.5 C 74 21 110/51 L 97 08/05/19 03:22 99/57 L 08/05/19 09:40 08/05/19 09:40 PG Care Time/CCT Total # of Minutes Spent Total Time Spent with Patient: Total time spent is greater than 50% in coordination of care (as documented) at patient's floor/unit and/or counseling patient: [place] [address] Subseq Hosp Care Lvl 3 Patient Type Established Diagnoses Acute hypoxemic respiratory failure J96.01 Kyphoscoliosis M41.9 Restrictive lung disease J98.4 Aspiration pneumonitis J69.0
[2019-08-05] MEDS: COUGH DROP (SUGAR FREE) LOZ 24 LOZ/1 BOX BUCCAL PRN (15:03)
--- NOTE | 2019-08-05 15:58 | Palliative Care Consultation ---
Date of Consultation August 05, 2019 Assessment & Plan (1) Palliative care encounter: Patient is an 79-year-old female with a past medical history significant for polio with quadriplegia, hypertension, restrictive lung disease due to kyphoscoliosis and GERD who was brought to the emergency room on after having increased shortness of breath after suctioning with decrease oxygen saturation to the 80s. Patient's checks x-ray and CTA were negative for airspace disease or PE-did show a layering secretions in the trachea and mucous plugging. Patient was started on IV antibiotics and has been transitioned to p.o. Augmentin. Patient takes Mucinex at home to help mobilize her secretions. Patient was seen by pulmonology-started on Mucomyst and recommended CoughAssist device. Patient had a bedside swallow exam by DRIVEMATIC MACHINE OPERATOR-recommended slippery diet with aspiration precautions. After admission patient was found to have runs of nonsustained V. tach-they were asymptomatic, she was started on amiodarone, she had an echo performed that showed an EF of 25 to 30% on 08/03. Cardiology is following. Met with patient with 2 of her sisters and a niece at bedside-patient has 3 sisters and 1 brother that live in state and a daughter that lives close by. Patient lives alone with caregivers-patient had been alone at night but did have a life alert but notified both her sister Jeanine and her daughter. Patient states she is used a life alert a few times. Both sisters stated that they plan to stay with patient at night so she is no longer alone in the evenings. Patient has 1 daughter and 2 grandchildren-daughter was in the visit earlier, she is at work currently and plans to visit again this evening. Patient did state in the event that she could not speak for herself she would want her daughter to make her decisions for her. Patient reiterated that she wants to be a full code at this time, initiated discussion regarding possible feeding tube if aspiration continues to be a problem-patient stated she would consider it but would need to think about it and discuss it with her daughter. Patient did require up to 4 L of O2-she is on 2 L/min at this time with adequate saturations and comfortable at rest. Patient does require suction daily at home for excess secretions. Family reports a 40 to 50 pound weight loss over the past year. Patient's goal is to return home with caregivers and family support. Patient does report she notices coughing after taking thin liquids-denies cough after soft foods. Patient does report increased difficulty swallowing over time. Discussed with patient the role of palliative care and assisting with medical decision making, patient agreeable to have us follow along with her during this hospitalization. -Chronic quadriplegia due to polio-patient bedbound, has paid caregivers at home. Family plans to help with overnight care -Aspiration pneumonitis-primarily with thin liquids, would likely benefit from thickened liquids with aspiration precautions and slippery diet as recommended by DRIVEMATIC MACHINE OPERATOR -GERD-contributing to aspiration, continue PPI -Restrictive lung disease-contributing to current respiratory status -Dysphasia-will likely worsen over time-patient is willing to consider feeding tube if needed-we will have further discussions with her daughter who is her POA -Nonsustained V. tach-further plans per cardiology -Will continue to follow and assist as needed with medical decision making. Patient's goal is to return home with paid caregivers as well as family support. (2) Chronic complete flaccid quadriplegia: (3) Aspiration pneumonitis: (4) GERD (gastroesophageal reflux disease): (5) Restrictive lung disease: (6) Dysphagia: (7) NSVT (nonsustained ventricular tachycardia): History of Present Illness Reason for Consultation: Address goals of care Requesting Physician: Dr Lambert Attending Physician: Claudio Stephen MD History of Present Illness Chart reviewed, patient seen and examined, patient's 2 sisters-Tala and Jeanine as well as niece, Rhiannon, at bedside. Patient is an 79-year-old female with a past medical history significant for polio with quadriplegia, hypertension, restrictive lung disease due to kyphoscoliosis and GERD who was brought to the emergency room on after having increased shortness of breath after suctioning with decrease oxygen saturation to the 80s. Patient's checks x-ray and CTA were negative for airspace disease or PE-did show a layering secretions in the trachea and mucous plugging. Patient was started on IV antibiotics and has been transitioned to p.o. Augmentin. Patient takes Mucinex at home to help mobilize her secretions. Patient was seen by pulmonology-started on Mucomyst and recommended CoughAssist device. Patient had a bedside swallow exam by DRIVEMATIC MACHINE OPERATOR-recommended slippery diet with aspiration precautions. After admission patient was found to have runs of nonsustained V. tach-they were asymptomatic, she was started on amiodarone, she had an echo performed that showed an EF of 25 to 30% on 08/03. Cardiology is following. Met with patient with 2 of her sisters and a niece at bedside-patient has 3 sisters and 1 brother that live in state and a daughter that lives close by. Patient lives alone with caregivers-patient had been alone at night but did have a life alert but notified both her sister Jeanine and her daughter. Patient states she is used a life alert a few times. Both sisters stated that they plan to stay with patient at night so she is no longer alone in the evenings. Patient has 1 daughter and 2 grandchildren-daughter was in the visit earlier, she is at work currently and plans to visit again this evening. Patient did state in the event that she could not speak for herself she would want her daughter to make her decisions for her. Patient reiterated that she wants to be a full code at this time, initiated discussion regarding possible feeding tube if aspiration continues to be a problem-patient stated she would consider it but would need to think about it and discuss it with her daughter. Patient did require up to 4 L of O2-she is on 2 L/min at this time with adequate saturations and comfortable at rest. Patient does require suction daily at home for excess secretions. Family reports a 40 to 50 pound weight loss over the past year. Patient does report she notices coughing after taking thin liquids-denies cough after soft foods. Patient does report increased difficulty swallowing over time. Discussed with patient the role of palliative care and assisting with medical decision making, patient agreeable to have us follow along with her during this hospitalization. Allergies Allergy/AdvReac Type Severity Reaction Status Date / Time doxycycline Allergy Severe swollen Verified 08/03/19 11:27 eyes Bactrim Allergy Unknown UNKNOWN Unverified 03/17/14 14:51 Cipro Allergy Unknown UNKNOWN Unverified 03/17/14 14:51 ciprofloxacin Allergy Unknown UNKNOWN Unverified 08/03/19 11:27 sulfamethoxazole Allergy Unknown UNKNOWN Unverified 08/03/19 11:27 trimethoprim Allergy Unknown UNKNOWN Unverified 08/03/19 11:27 Home Medications Home Medications Medication Instructions Recorded Confirmed Type cholecalciferol (vitamin D3) 25 1,000 units PO QAM 04/09/19 08/03/19 History mcg (1,000 unit) capsule docusate sodium 100 mg capsule 100 mg PO BID 04/09/19 08/03/19 History fluoxetine 20 mg capsule 20 mg PO QAM 04/09/19 08/03/19 History fluticasone propionate 50 1 sprays INTNAS DAILY PRN 04/09/19 08/03/19 History mcg/actuation nasal spray,suspension furosemide 20 mg tablet 20 mg PO QAM 04/09/19 08/03/19 History losartan 25 mg tablet 25 mg PO QAM 04/09/19 08/03/19 History tramadol 50 mg tablet 50 mg PO Q4H PRN tab 04/09/19 08/03/19 History Linzess 145 mcg PO QAM 04/18/19 08/03/19 History Mucinex DM 1 tab PO Q12H 08/03/19 08/03/19 History albuterol sulfate 2.5 mg INHALATION Q4H PRN 08/03/19 08/03/19 History levocetirizine 5 mg PO HS 08/03/19 08/03/19 History omeprazole 20 mg PO BID 08/03/19 08/03/19 History Patient History Medical History Acute hypoxemic respiratory failure Aspiration pneumonitis Cardiac murmur Depression Encounter for pre-operative examination GERD (gastroesophageal reflux disease) History of hypertension History of pneumonia "CHRONIC" Hx of shortness of breath IBS (irritable bowel syndrome) Kyphoscoliosis Osteoarthritis Polio WHEELCHAIR BOUND Restrictive lung disease Surgical History Difficult intravenous access PT VERY ANXIOUS ABOUT IV STICK ALSO! History of cholecystectomy History of colonoscopy Family History Sister Family history of diabetes mellitus Brother Family history of diabetes mellitus Brother Family history of diabetes mellitus Brother Family history of diabetes mellitus Brother Family history of diabetes mellitus Other Diabetes Heart disease Lung cancer Lung disease Social History Preferred Language: Maori Communication Ability: Effective Testing Director Required: No Beliefs That Will Affect Care: None marital status: Current Living Situation: Alone Current Living Situation Comment: Personal care Other Information That Helps Us Care for You: No Feels Safe at Home: Yes Safety Concerns: Feels Safe At This Time Smoking Status: Current every day smoker Tobacco Type: cigarettes ; Cigarettes Per Day: 1 ; Do You Dip or Chew Tobacco: No ; Second Hand Exposure: No ; Tobacco Cessation Education Requested by Patient: No Hx Alcohol Use: No Hx Substance Use: No Review of Systems Review of Systems: Patient denies fever, increased shortness of breath, chest pain or abdominal pain. Positive for weight loss, cough, dysphasia. Physical Exam Physical Exam: Patient awake and alert, no acute distress at rest, bear hugger blanket in place HEENT: EOMI, hearing within normal limits Respiratory: Coarse rhonchi on right greater than left, unlabored at rest CV: Regular rate, no edema Abdomen: Soft, not distended Extremities: Functional quadriplegia Neuro: Alert and oriented Results & Data Vital Signs (Past 12 Hours) Vital Signs Temp Pulse Resp BP Pulse Ox 08/05/19 15:32 98.4 F 82 24 154/63 H 97 08/05/19 13:26 86 18 95 08/05/19 11:43 97.7 F 70 16 125/42 L 95 08/05/19 08:05 98.6 F 71 16 151/45 H 96 08/05/19 08:00 98.2 F 08/05/19 06:55 68 18 96 08/05/19 03:52 97.7 F 74 21 110/51 L 97 PG Care Time/CCT Total # of Minutes Spent Total Time Spent with Patient: Total time spent total time spent 70 minutes with greater than 50% of the time spent at bedside discussing patient's current status as well as goals of care Coding Level of Care Code 37641 Inpt Consult Level 3 Diagnoses Palliative care encounter Z51.5 Chronic complete flaccid quadriplegia Aspiration pneumonitis J69.0 GERD (gastroesophageal reflux disease) K21.9 Restrictive lung disease J98.4 Dysphagia R13.10 NSVT (nonsustained ventricular tachycardia) I47.2 Time Spent (min) 70
[2019-08-05] MEDS ORDERED: AMOXICILLIN/CLAVULANATE 875 MG TAB PO SCH (17:00)
[2019-08-05] MEDS: AMOXICILLIN/CLAVULANATE 500 MG TAB PO SCH (17:38)
[2019-08-05 19:26] LABS: Base Excess ABG -0.9 mEq/L (-9-1.8); HCO3 ABG 22 mmol/L (19-24); PCO2 ABG 33 mmHg (35-46); PO2 ABG 55 mmHg (80-95); pH ABG 7.45 (7.35-7.45)
[2019-08-05 19:29] LABS: Allen Test Pos (Pos)
[2019-08-05] MEDS ORDERED: POTASSIUM CHLORIDE 20 MEQ TABCR PO STA (19:31)
[2019-08-05] MEDS: POTASSIUM CHLORIDE / WTR 10 MEQ/100 ML PLCT IV SCH ×4 (20:24→23:49)
[2019-08-05] MEDS ORDERED: CALCIUM CARBONATE 500 MG CHEWABLE TAB PO PRN (23:48)
[2019-08-06] MEDS ORDERED: ALBUT/IPRATROP 3MG/0.5MG NEB 3 ML VIAL NEB STA (00:16)
[2019-08-06] MEDS ORDERED: methylPREDNISolone 20 MG in SYRINGE 0 ML IV STA (00:17)
[2019-08-06] MEDS: LEVALBUTEROL HCL 0.63 MG/3 ML NEB NEB SCH ×4 (00:24→18:54)
[2019-08-06] MEDS: IPRATROPIUM BROMIDE NEB SOLN 0.02% 2.5 ML VIAL INH SCH ×4 (00:24→18:54)
[2019-08-06] MEDS ORDERED: FUROSEMIDE 20 MG in SYRINGE 0 ML IV ONE (00:36)
[2019-08-06 01:02] LABS: Hematocrit (blood only) 40.2 % (37-47); Hemoglobin 14.1 g/dL (12.0-16.0); Mean Corpuscular Hemoglobin 31.2 pg (25-34); Mean Corpuscular Hgb Conc 35.1 g/dL (32-36); Mean Corpuscular Volume 88.9 fL (80-100); Mean Platelet Volume 10.9 fL (7.4-10.4); Platelet Count 244 K/uL (130-400); RDW Standard Deviation 52.5 fL (36.4-46.3); Red Blood Count 4.52 M/uL (4.2-5.4); White Blood Count 23.68 K/uL (4.8-10.8)
[2019-08-06 01:08] LABS: Base Excess ABG -5.7 mEq/L (-9-1.8); HCO3 ABG 20 mmol/L (19-24); PCO2 ABG 37 mmHg (35-46); PO2 ABG 61 mmHg (80-95); pH ABG 7.34 (7.35-7.45)
[2019-08-06 01:11] LABS: Allen Test POS (Pos)
[2019-08-06 01:13] LABS: Partial Thromboplastin Ratio 1.1; Partial Thromboplastin Time 28.8 Seconds (21.0-31.0)
[2019-08-06 01:24] LABS: BUN Creatinine Ratio 39.1 (10-20); Calcium 8.5 mg/dl (8.5-10.1); Creatinine Clr Calc Pharmacy 26.7 ml/min; Est GFR (African American) 70.9; Est GFR (Non-African American) 61.2; Magnesium 2.1 mg/dl (1.8-2.4); Potassium 5.8 mmol/L (3.5-5.1)
[2019-08-06] MEDS ORDERED: DEXTROSE 50% 50 ML SYRINGE IV ONE (01:24)
[2019-08-06] MEDS ORDERED: INSULIN HUMAN REGULAR PER UNIT 10 UNITS in SYRINGE 9.9 ML IV STA (01:24)
[2019-08-06] MEDS ORDERED: CALCIUM GLUCONATE 10% 1,000 MG in SODIUM CHLORIDE 0.9% 50 ML IV STA (01:24)
--- NOTE | 2019-08-06 01:27 | Communication Note ---
Date of Service: August 06, 2019
[2019-08-06 01:28] LABS: Basophils # (auto) 0.03 K/uL (0-0.2); Basophils % (auto) 0.1 %; Echinocytes 1+; Eosinophils # (auto) 0.01 K/uL (0-0.5); Immature Granulocytes # (auto) 0.06 K/uL (0.00-0.02); Immature Granulocytes % (auto) 0.3 %; Lymphocytes % (auto) 4.2 %; Monocytes % (auto) 5.1 %; Neutrophils # (auto) 21.38 K/uL (1.4-6.5); Neutrophils % (auto) 90.3 %
[2019-08-06 05:02] LABS: BUN Creatinine Ratio 30.4 (10-20); Calcium 8.5 mg/dl (8.5-10.1); Creatinine Clr Calc Pharmacy 22.2 ml/min; Est GFR (African American) 56.8; Potassium 4.3 mmol/L (3.5-5.1)
--- NOTE | 2019-08-06 06:53 | XRay Report ---
XR chest 1V portable CLINICAL HISTORY: 79 years-old Female presenting with sob. TECHNIQUE: Portable upright AP view of the chest was obtained. COMPARISON: 08/03/2019. FINDINGS: Atherosclerosis of the aortic arch. Cardiac silhouette enlarged. Interval development of patchy right mid to upper lobe and left mid to lower lobe opacities. These are much more extensive on the left. S mall to moderate left pleural effusion. No pneumothorax. Degenerative changes of the thoracic spine. Moderate dextroscoliosis. This results in distortion of anatomy. Osteopenia suspected. Upper abdomen normal. IMPRESSION: 1. Interval development of multifocal infiltrates more extensive on the left concerning for multifoc al pneumonia. Aspiration is considered less likely. 2. Left pleural effusion, possibly a parapneumonic effusion. 3. Cardiomegaly. Edema is considered unlikely. ACT 112: Negative or not required by law. Electronically signed by: Reinier Brock M.D. 08/06/2019 6:51 AM
[2019-08-06] MEDS: ACETYLCYSTEINE 10% INHAL SOLN 4 ML **DISPENSED BY RESP. INH SCH ×2 (07:03→18:54)
[2019-08-06] MEDS: LINACLOTIDE 72 MCG CAPSULE PO SCH (07:49)
[2019-08-06] MEDS: AMOXICILLIN/CLAVULANATE 500 MG TAB PO SCH ×2 (07:49→16:14)
[2019-08-06] MEDS: CHOLECALCIFEROL 1,000 UNITS 25 MCG TAB PO SCH (07:49)
[2019-08-06] MEDS: LOSARTAN POTASSIUM 50 MG TAB PO SCH (07:50)
[2019-08-06] MEDS: DOCUSATE SODIUM 100 MG CAP PO SCH ×2 (07:50→21:59)
[2019-08-06] MEDS: guaiFENesin 600 MG TABCR PO SCH ×2 (07:50→21:59)
[2019-08-06] MEDS: FLUOXETINE HCL 20 MG CAP PO SCH (07:51)
[2019-08-06] MEDS: PANTOprazole 40 MG TAB PO SCH (07:51)
--- NOTE | 2019-08-06 09:08 | Hospitalist Progress Note ---
Date of Service August 06, 2019 Assessment & Plan (1) Hypoxia: (2) Bronchitis: (1) Acute Respiratory Failure with Hypoxia (2) Bronchitis: Possible Aspiration Pneumonia: Pt is 79 y/o F with PMH HTN, polio, quadriplegia, restrictive lung disease secondary to kyphoscoliosis, GERD, depression, IBS presented to ER with complaint of shortness of breath x 1 day. Worse this morning after daily suctioning with increased SOB, diaphoresis and reported oxygen saturation in the 80s. In ER T: 36.4, R: 26 down to 18, P: 96, BP: 174/70, 86% on RA up to 96% on 3L NC WBC: 14.9, procalcitonin <0.05, lactate not obtained secondary to multiple needle sticks and unable to obtain. Negative influenza CXR: no acute changes CTA Chest: There is no evidence of pulmonary embolus in the main, lobar, or segmental pulmonary arteries. Moderate to severe thoracolumbar scoliosis distorts the thoracic cage.There is no focal airspace consolidation or pleural effusion. There are layering secretions in the trachea. Additionally, there is diffuse peribronchial thickening with fluid and secretions/mucous plugging within the upper and lower lobe bronchi. Foci of ill-defined parenchymal nodularity are of indeterminate significance and similar to the 02/25/2019 examination. DDX: Bronchitis, aspiration, Mucous plugging -- improved in AM, worsened again after having dinner repeat CXR: worsening pulmonary edema, PNA continue Bipap given Nebs, Lasix Vancomycin IV added to Augmentin for possible HCAP Continue nebs, Mucomyst, Mucinex Continue chest physical therapy, CoughAssist device -- Pulm consulted, discussed with Dr. Miranda -- Speech therapist consulted, recommendations noted-->NPO for now given high suspicion of aspiration this evening --Palliative care on board possible transition to comfort measures if patient's condition continues to deteriorate (3) Nonsustained V tach Cardiomyopathy, newly diagnosed Acute Systolic CHF Exacerbation - with mild troponin elevation likely from Demand Ischemia - precipitated by hypoxia, respiratory issues, in the setting of newly diagnosed cardiomyopathy -Echo: Cardiomyopathy, EF 25 to 30% - Cardiology consulted Lopressor IV given, then Amiodarone drip but patient developed bradycardia--> Lopressor and amiodarone held Nonsustained V. tach not observed since 08/06/19 -- (+) pulmonary edema, volume overload -- usually on lasix 20mg po daily start Lasix 40mg IV daily, monitor Hypokalemia -- replaced Oral Thrush -- Nystatin (4) Restrictive lung disease: (5) Kyphoscoliosis: History restrictive lung disease secondary to kyphoscoliosis (6) GERD (gastroesophageal reflux disease): -Continue PPI (7) IBS (irritable bowel syndrome): -Continue Linzess, stool softeners -MiraLAX as needed for constipation (8) Depression: -Continue fluoxetine DVT Prophylaxis -Heparin SQ case and plan of care discussed with patient and her daughter all questions answered she is understanding, agreeable, comfortable with the plan of care Admission and Anticipated Discharge Date Admission Date: August 03, 2019 Subjective ff up for hypoxia,bronchitis, newly diagnosed cardiomyopathy, NSVT overnight, developed respiratory distress CXR possible pulmonary edema, pna? given Lasix, Solumedrol, placed on Bipap improved this AM, back to 2 L NC states breathing is better than yesterday less cough no chest pain no other symptoms ---- re-evaluated around 7pm for respiratory distress, desaturation to low 80s , started after eating dinner seen at bedside, in respiratory distress given Bipap, Lasix, Nebs discussed case with patient's daughter at length code status changed to DNR per daughter's decision she inquired about possible measures to make patient comfortable, if she cont inues to worsen discussed re: comfort measures, morphine IV PRN plan to monitor patient with above treatment modalities and see how patient does may elect to proceed with comfort measures only if patient continues to deteriorate Review of Systems Review of Systems: All systems reviewed & are unremarkable except as noted in HPI & below Physical Exam Physical Exam: in the morning General- oriented x 2, not in distress, speaks in phrases with no effort or accessory muscle use Eyes- anicteric Neck- no JVD Lungs- mild rhonchi BL Heart- normal rate, regular rhythm; no murmurs Abdomen- normal bowel sounds, nondistended, soft, nontender Extremities- no pretibial edema, no calf tenderness Neuro- alert, oriented x 3; quadriplegic Skin- warm & dry Results & Data ([facility]) Vital Signs (Past 12 Hours) Vital Signs Temp Pulse Pulse Pulse Resp BP Pulse Ox 08/06/19 07:45 36.4 C L 77 20 134/42 L 98 08/06/19 07:05 76 76 24 100 08/06/19 03:50 75 19 131/54 L 100 08/06/19 03:17 81 20 119/49 L 100 08/06/19 03:15 82 19 100 08/06/19 02:36 36.8 C 91 H 21 150/48 H 100 08/06/19 02:15 97 H 22 105/40 L 100 08/06/19 01:35 89 24 131/49 L 99 08/06/19 01:12 29 H 140/83 93 08/06/19 01:03 96 H 28 H 93 08/06/19 00:57 31 H 93 08/06/19 00:46 91 08/06/19 00:26 80 30 H 89 L 08/05/19 23:32 36.9 C 82 20 133/51 L 91 08/05/19 22:20 83
[2019-08-06] MEDS: NYSTATIN SUSP 500,000 U/5 ML UDC PO SCH ×3 (12:03→21:59)
--- NOTE | 2019-08-06 15:11 | Pulmonology Progress Note ---
Date of Service August 06, 2019 Assessment & Plan (1) Acute hypoxemic respiratory failure: --Acute hypoxic respiratory failure Likely secondary to underlying severe kyphoscoliosis and neuromuscular disease from underlying polio. Patient has very poor cough and recently she is saying that she is having occasional dysphagia as well. I think there is a underlying silent aspiration going on at the same time. CT chest 08/03/2019 did not show any clear infiltrate only bronchial thickening which might be secondary to bronchitis. Procalcitonin negative. Influenza negative. Continue with aspiration precautions. Keep the head of the bed elevated at 30 degrees. Frequent suctioning. New infiltrates appreciated on the chest x-ray done early 08/06/2019. Patient had pulmonary function tests done as an outpatient on 05/07/2019 which showed FEV1 of only 43% predicted with FVC 36% predicted. Patient was not able to do lung volumes as he was not able to fit in the body box. This likely represents restrictive lung disease because of her underlying kyphoscoliosis and polio. Given that the patient's FVC is only 36% predicted patient will qualify for bilevel at home. We will get social work involved. --New onset CHF Ejection fraction 20 to 25% with severe global hypokinesis as per echo done 08/05/2019 --Active smoker Advised to quit Patient usually smokes 1 to 2 cigarettes a day has never gone beyond that but she has been doing this for very long time Plan: New onset infiltrates on the chest x-ray done midnight 08/06/2019. Differential includes aspiration pneumonia, acute CHF. Patient has a recent echo which did not show any vegetations. Patient does have a WBC count which has been going up since the time of admission but no clear source of infection. We will order ESR/CRP and procalcitonin again. Consider giving 1 dose of vancomycin if there is no improvement in the infiltrates after giving Lasix in the morning. Repeat chest x-ray now. Would consider repeating CT chest without contrast if need be. Recommend swallow eval. (2) Kyphoscoliosis: (3) Restrictive lung disease: (4) Aspiration pneumonitis: Subjective Patient seen and examined at bedside. No acute distress. Overnight patient complained of shortness of breath. Chest x-ray was done which showed diffuse infiltrates bilaterally more on the left side. Patient says that her shortness of breath is back to her baseline. Denies any chest pain, no headache, no nausea, no vomiting. Patient has poor appetite. Occasional dysphagia. No dizziness Patient's family present at bedside at time of examination. Review of Systems Review of Systems: All systems reviewed & are unremarkable except as noted in HPI & below Physical Exam Physical Exam: Constitutional: No acute distress HEENT: EOMI, PERRLA, neck deviated to the left Respiratory system: Decreased air entry bilaterally, positive rhonchi bilaterally, positive mild crackles bilateral lower lobes CVS: S1-S2 positive, positive 2 out of 6 systolic ejection murmur appreciated the aorta, accentuated P2 Abdomen: Soft, nontender, nondistended, positive bowel sounds x4 Extremities: +2 pulses bilaterally radialis/ dorsalis pedis, no cyanosis, cold extremities, +1 edema bilateral lower extremity Neuro: Awake alert oriented x3 Psych: Normal mood and affect Skin: no rashes, warm and dry Lymphatic: no cervical or axillary lymphadenopathy Results & Data ([facility]) Vital Signs (Past 12 Hours) Vital Signs Temp Pulse Pulse Pulse Resp BP Pulse Ox 08/06/19 13:51 87 21 93 08/06/19 11:00 37 C 84 20 136/59 L 95 08/06/19 07:45 36.4 C L 77 20 134/42 L 98 08/06/19 07:05 76 76 24 100 08/06/19 03:50 75 19 131/54 L 100 08/06/19 03:17 81 20 119/49 L 100 08/06/19 03:15 82 19 100 08/06/19 00:49 08/06/19 04:06 PG Care Time/CCT Total # of Minutes Spent Total Time Spent with Patient: Total time spent is greater than 50% in coordination of care (as documented) at patient's floor/unit and/or counseling patient: C[place] [address] Subseq Hosp Care Lvl 3 Patient Type Established Diagnoses Acute hypoxemic respiratory failure J96.01 Kyphoscoliosis M41.9 Restrictive lung disease J98.4 Aspiration pneumonitis J69.0
--- NOTE | 2019-08-06 15:38 | XRay Report ---
XR chest 1V portable CLINICAL HISTORY: f/u COMPARISON STUDY: Chest CT August 03, 2019. Chest radiograph August 06, 2019. FINDINGS: There is no pneumothorax. There are suspected small bilateral pleural effusions. Bilateral airspace opacities, greater within the left lung, are again noted. There is mild interstitial thicken ing. No pneumothorax. Cardiomegaly is again noted. Thoracolumbar spine scoliosis is partially imaged. IMPRESSION: 1. No significant change in bilateral airspace opacities and interstitial thickening, greater within the left lung. The findings favor pneumonia. Asymmetric pulmonary edema could appear similar but is c onsidered less likely. 2. Small bilateral pleural effusions. ACT 112: Negative or not required by law. Electronically signed by: Shun Napier M.D. 08/06/2019 3:37 PM
[2019-08-06] MEDS ORDERED: CONSULT PHARMACY STA (15:58)
[2019-08-06] MEDS ORDERED: VANCOMYCIN CONSULT ACTIVE PRN (16:07)
[2019-08-06] MEDS ORDERED: VANCOMYCIN HCL 750 MG in SODIUM CHLORIDE 0.9% 250 ML IV ONE (16:15)
[2019-08-06] MEDS ORDERED: FUROSEMIDE 40 MG/4 ML VIAL IV ONE (19:00)
--- NOTE | 2019-08-06 19:07 | XRay Report ---
XR chest 1V portable CLINICAL HISTORY: hypoxia dyspnea COMPARISON STUDY: 08/06/2019 at 3:18 PM FINDINGS: Findings of mild. Massive pulmonary edema. This again may be inflammatory. Interval develop ment of a small left effusion. Mild stable cardiomegaly. IMPRESSION: Moderately progressive bilateral parenchymal infiltrates versus moderately progressive p ulmonary edema. ACT 112: Negative or not required by law. The above report was generated using voice recognition software. It may contain grammatical, syntax or spelling errors. Electronically signed by: Harshad Mcfarlane M.D. 08/06/2019 7:05 PM
[2019-08-07] MEDS: IPRATROPIUM BROMIDE NEB SOLN 0.02% 2.5 ML VIAL INH SCH ×4 (00:51→20:04)
[2019-08-07] MEDS: LEVALBUTEROL HCL 0.63 MG/3 ML NEB NEB SCH ×4 (00:51→20:04)
[2019-08-07 07:15] LABS: Creatinine Clr Calc Pharmacy 29.5 ml/min; Est GFR (African American) 80.7; Est GFR (Non-African American) 69.6
[2019-08-07] MEDS: ACETYLCYSTEINE 10% INHAL SOLN 4 ML **DISPENSED BY RESP. INH SCH ×2 (07:52→20:04)
[2019-08-07 08:51] LABS: BUN Creatinine Ratio 37.7 (10-20); Calcium 9.1 mg/dl (8.5-10.1); Creatinine Clr Calc Pharmacy 29.1 ml/min; Est GFR (African American) 79.5; Est GFR (Non-African American) 68.6; Potassium 3.3 mmol/L (3.5-5.1)
[2019-08-07] MEDS ORDERED: dilTIAZem HCl 5 MG/ML 5 ML VIAL IV STA (08:56)
[2019-08-07] MEDS ORDERED: FUROSEMIDE 20 MG TAB PO SCH (09:00)
[2019-08-07] MEDS: DOCUSATE SODIUM 100 MG CAP PO SCH (10:29)
[2019-08-07] MEDS: AMOXICILLIN/CLAVULANATE 500 MG TAB PO SCH (10:29)
[2019-08-07] MEDS: LOSARTAN POTASSIUM 50 MG TAB PO SCH (10:29)
[2019-08-07] MEDS: NYSTATIN SUSP 500,000 U/5 ML UDC PO SCH ×4 (10:30→22:14)
[2019-08-07] MEDS: guaiFENesin 600 MG TABCR PO SCH (10:30)
[2019-08-07] MEDS: PANTOprazole 40 MG TAB PO SCH (10:30)
[2019-08-07] MEDS: CHOLECALCIFEROL 1,000 UNITS 25 MCG TAB PO SCH (10:30)
[2019-08-07] MEDS: FLUOXETINE HCL 20 MG CAP PO SCH (10:30)
[2019-08-07] MEDS: LINACLOTIDE 72 MCG CAPSULE PO SCH (10:30)
--- NOTE | 2019-08-07 10:46 | Cardiology Progress Note ---
Date of Service August 07, 2019 Assessment & Plan (1) NSVT (nonsustained ventricular tachycardia): Ventricular tachycardia resolved with initiation of amiodarone, however, patient became significantly bradycardic and amiodarone was discontinued. Has not had any further significant runs of ventricular tachycardia overnight so we will continue to follow. We will hold off on addition of beta-rakesh or amiodarone at this time. Once again I discussed goals of care with the patient and her family her niece and 2 sisters are in agreement that they do not want any invasive procedures performed and are leaning towards comfort care, however, the patient still prefers to be full code. Appreciate input from our palliative care colleagues. (2) Acute hypoxemic respiratory failure: (3) Aspiration pneumonitis: (4) Kyphoscoliosis: (5) Restrictive lung disease: (6) Chronic complete flaccid quadriplegia: (7) Polio: (8) Atrial fibrillation with rapid ventricular response: New onset this AM. Asymptomatic Given the profound bradycardia that the patient experienced earlier this admission I am hesitant to restart any AV isabel blocking agents at this time. She is hemodynamically stable I will give her a trial of Cardizem 5 mg IV x1 now to see how she responds hemodynamically. Obviously amiodarone is not an option given the profound bradycardia that she had previously. Patient is obviously not an anticoagulation candidate. Subjective Patient seen and examined resting flat in bed. Denies any complaints overnight specifically denying any chest pain, shortness of breath, palpitations, lighthea dedness, dizziness or syncope. Telemetry reviewed normal sinus rhythm without sustained ventricular tachycardia, overnight. Has lapsed into atrial fibrillation with rapid ventricular response this a.m. Review of Systems Review of Systems: All systems reviewed & are unremarkable except as noted in HPI & below Physical Exam Physical Exam: General: Awake, alert and oriented x 3. No acute distress. Frail, cachectic and quadriplegic HEENT: Normocephalic, atraumatic. Pupils equal, round and reactive to light and accommodation. Extraocular muscles are intact. Anicteric sclera. Moist mucous membranes. Neck: No JVD. No bruit. Cardiovascular: irregularly irregular, unable to appreciate murmur, rub or gallop. Pulmonary: Clear to auscultation bilaterally. No rales, rhonchi, or wheezing. Abdomen: Bowel sounds x 4, soft. No rebound, guarding or tenderness. No organomegaly. Extremities: No clubbing, cyanosis or edema. +2 pedal pulses bilaterally. Skin: Warm and dry. Results & Data Vital Signs (Past 12 Hours) Vital Signs Temp Pulse Pulse Pulse Resp BP BP 08/07/19 07:55 101 H 20 08/07/19 07:53 36.6 C 88 16 131/57 L 08/07/19 03:30 36.3 C L 89 20 129/53 L 08/07/19 00:55 86 24 08/07/19 00:31 36.8 C 85 24 124/50 L 08/06/19 23:17 86 20 Pulse Ox 08/07/19 07:55 96 08/07/19 07:53 96 08/07/19 03:30 90 08/07/19 00:55 96 08/07/19 00:31 98 08/06/19 23:17 98
[2019-08-07] MEDS ORDERED: METOPROLOL TARTRATE 1 MG/ML VIAL IV PRN (11:08)
--- NOTE | 2019-08-07 11:08 | Hospitalist Progress Note ---
Date of Service August 07, 2019 Assessment & Plan (1) Hypoxia: (2) Bronchitis: Acute Respiratory Failure with Hypoxia Bronchitis: Possible Aspiration Pneumonia: "Pt is 79 y/o F with PMH HTN, polio, quadriplegia, restrictive lung disease secondary to kyphoscoliosis, GERD, depression, IBS presented to ER with complaint of shortness of breath x 1 day. Worse this morning after daily suctioning with increased SOB, diaphoresis and reported oxygen saturation in the 80s. In ER T: 36.4, R: 26 down to 18, P: 96, BP: 174/70, 86% on RA up to 96% on 3L NC WBC: 14.9, procalcitonin <0.05, lactate not obtained secondary to multiple needle sticks and unable to obtain. Negative influenza CXR: no acute changes CTA Chest: There is no evidence of pulmonary embolus in the main, lobar, or segmental pulmonary arteries. Moderate to severe thoracolumbar scoliosis distorts the thoracic cage.There is no focal airspace consolidation or pleural effusion. There are layering secretions in the trachea. Additionally, there is diffuse peribronchial thickening with fluid and secretions/mucous plugging within the upper and lower lobe bronchi. Foci of ill-defined parenchymal nodularity are of indeterminate significance and similar to the 02/25/2019 examination." -being treated for aspiration pneumonia or possible Hospital acquired pneumonia with Augmentin and Vancomycin, continue for now -speech therapist was consulted for silent aspiration / aspiration pneumonia and patient currently NPO -Continue nebs, Mucomyst, Mucinex -Continue chest physical therapy, CoughAssist device Nonsustained V tach Cardiomyopathy, newly diagnosed Acute Systolic CHF Exacerbation atrial fibrillation in rapid ventricular response -admission with mild troponin elevation likely from Demand Ischemia; precipitated by hypoxia, respiratory issues, in the setting of newly diagnosed cardiomyopathy; Echo: Cardiomyopathy, EF 25 to 30% - initially patient's ventricular tachycardia was treated with IV metoprolol and then Amiodarone drip but patient developed bradycardia so both metoprolol and amiodarone held -patient was then in a normal rate and rhythm -additional Lasix given on 08/06/2019, currently on Lasix 20mg po daily -08/07/2019 Patient in atrial fibrillation with rapid ventricular response this AM. Patient received IV diltiazem. cardiology aware of patient's heart rates but advised conservative measures because of patient's co-morbidities. Patient wearing oxygen mask and reports feeling shortness of breath. she denies chest pain or palpitations. Patient's daughter Alla [phone] at the bedside. We talked about goals of care. At this time, patient's code status is DO NOT RESUCITATE/DO NOT INTUBATE. We discussed possible comfort care measures but patient and her daughter does not appear to be ready for this option. For now, they have agreed to continue IV antibiotics for the aspiration pneumonia and prn IV metoprolol for heart rates above 110 beats per minute. They are aware that patient can have potential complications from rate control medications and they agreed to to risks. Patient cannot take oral medications because of aspiration risks and patient's daughter also concerned about aspiration. We discussed that any feeding is an aspiration risk that patient and daughter will need to take if they want NPO to be discontinued Restrictive lung disease: Kyphoscoliosis: -History restrictive lung disease secondary to kyphoscoliosis Quadriplegia -repositioning q shift Hypokalemia -replaced GERD (gastroesophageal reflux disease): -Continue PPI Oral Thrush - Nystatin IBS (irritable bowel syndrome): -Continue Linzess, stool softeners -MiraLAX as needed for constipation Depression: -Continue fluoxetine DVT Prophylaxis -Heparin SQ Admission and Anticipated Discharge Date Admission Date: August 03, 2019 Subjective Patient in atrial fibrillation with rapid ventricular response this AM. Patient received IV diltiazem. cardiology aware of patient's heart rates but advised conservative measures because of patient's co-morbidities. Patient wearing oxygen mask and reports feeling shortness of breath. she denies chest pain or palpitations. Patient's daughter Alla [phone] at the bedside. We talked about goals of care. At this time, patient's code status is DO NOT RESUCITATE/DO NOT INTUBATE. We discussed possible comfort care measures but patient and her daughter does not appear to be ready for this option. For now, they have agreed to continue IV antibiotics for the aspiration pneumonia and prn IV metoprolol for heart rates above 110 beats per minute. They are aware that patient can have potential complications from rate control medications and they agreed to to risks. Patient cannot take oral medications because of aspiration risks and patient's daughter also concerned about aspiration. We discussed that any feeding is an aspiration risk that patient and daughter will need to take if they want NPO to be discontinued Review of Systems Review of Systems: All systems reviewed & are unremarkable except as noted in HPI & below Physical Exam 2 Constitutional: + frail appearing Eyes: PERRL, conjunctivae normal, anicteric sclerae EOM intact bilaterally ENMT: external ear and nose normal, oropharynx normal Neck: normal visual inspection Respiratory: normal respiratory effort Cardiovascular: Rate/Rhythm: + tachycardic and + irregularly irregular Gastrointestinal (Abdomen): Percussion/Palpation: abdomen soft Musculoskeletal: quadraplegic, patient reports she can feel physician touching the upper and lower extremities Psychiatric: Orientation: cooperative Results & Data ([facility]) Vital Signs (Past 12 Hours) Vital Signs Temp Pulse Pulse Pulse Resp BP BP 08/07/19 07:55 101 H 20 08/07/19 07:53 36.6 C 88 16 131/57 L 08/07/19 03:30 36.3 C L 89 20 129/53 L 08/07/19 00:55 86 24 08/07/19 00:31 36.8 C 85 24 124/50 L 08/06/19 23:17 86 20 Pulse Ox 08/07/19 07:55 96 08/07/19 07:53 96 08/07/19 03:30 90 08/07/19 00:55 96 08/07/19 00:31 98 08/06/19 23:17 98
[2019-08-07] MEDS ORDERED: VANCOMYCIN CONSULT ACTIVE PRN (11:22)
[2019-08-07] MEDS ORDERED: VANCOMYCIN HCL IV ONE (11:30)
[2019-08-07] MEDS ORDERED: SODIUM CHLORIDE 0.9% IV ONE (11:30)
[2019-08-07] MEDS ORDERED: ACETAMINOPHEN 325 MG TAB PO PRN (11:44)
--- NOTE | 2019-08-07 12:16 | Pulmonology Progress Note ---
Date of Service August 07, 2019 Assessment & Plan (1) Acute hypoxemic respiratory failure: --Acute hypoxic respiratory failure Likely secondary to underlying severe kyphoscoliosis and neuromuscular disease from underlying polio. Patient has very poor cough and recently she is saying that she is having occasional dysphagia as well. I think there is a underlying silent aspiration going on at the same time. CT chest 08/03/2019 did not show any clear infiltrate only bronchial thickening which might be secondary to bronchitis. Procalcitonin negative. Influenza negative. Continue with aspiration precautions. Keep the head of the bed elevated at 30 degrees. Frequent suctioning. ESR 44, CRP 14.6, procalcitonin 0.5 Diffuse pulmonary infiltrates persisted even after Lasix. This seems to be a lobar pneumonia Patient had pulmonary function tests done as an outpatient on 05/07/2019 which showed FEV1 of only 43% predicted with FVC 36% predicted. Patient was not able to do lung volumes as he was not able to fit in the body box. This likely represents restrictive lung disease because of her underlying kyphoscoliosis and polio. Given that the patient's FVC is only 36% predicted patient will qualify for bilevel at home. We will get social work involved. --New onset CHF with non-sustained V. tach Ejection fraction 20 to 25% with severe global hypokinesis as per echo done 08/05/2019 --Active smoker Advised to quit Patient usually smokes 1 to 2 cigarettes a day has never gone beyond that but she has been doing this for very long time Plan: Repeat limited echo was ordered to see if the patient has any valve prolapse leading into acute CHF. This was negative for any change compared to previous echo done on 08/05/2019. Likely seems to be aspiration pneumonia patient getting progressively worse. Changed ampicillin sulbactam to Unasyn given that the patient was not eating anything by mouth. Note from Dr. Acosta reviewed. Family has decided to go towards comfort care. Recommendations as per above. Pulmonary will sign off. Recall if needed. (2) Kyphoscoliosis: (3) Restrictive lung disease: (4) Aspiration pneumonitis: Subjective Patient seen and examined at bedside. Overnight patient again had episode of hypoxia. As per the hospitalist patient had eating her supper a little bit and after that she complained of shortness of breath. Patient also had an episode of A. fib with RVR early in the morning today for which she got diltiazem. At the time of examination patient complained of shortness of breath. She was on oxygen mask at the time. Review of Systems Review of Systems: All systems reviewed & are unremarkable except as noted in HPI & below Physical Exam Physical Exam: Constitutional: No acute distress HEENT: EOMI, PERRLA, neck deviated to the left Respiratory system: Decreased air entry bilaterally, positive rhonchi bilaterally, positive crackles diffuse bilateraly CVS: S1-S2 positive, positive 2 out of 6 systolic ejection murmur appreciated the aorta, accentuated P2 Abdomen: Soft, nontender, nondistended, positive bowel sounds x4 Extremities: +2 pulses bilaterally radialis/ dorsalis pedis, no cyanosis, cold extremities, +1 edema bilateral lower extremity Neuro: Awake alert oriented x3 Psych: Normal mood and affect Skin: no rashes, warm and dry Lymphatic: no cervical or axillary lymphadenopathy Results & Data ([facility]) Vital Signs (Past 12 Hours) Vital Signs Temp Pulse Pulse Resp BP BP Pulse Ox 08/07/19 11:40 36.8 C 100 H 18 125/63 08/07/19 07:55 101 H 20 96 08/07/19 07:53 36.6 C 88 16 131/57 L 96 08/07/19 03:30 36.3 C L 89 20 129/53 L 90 08/07/19 00:55 86 24 96 08/07/19 00:31 36.8 C 85 24 124/50 L 98 08/06/19 00:49 08/07/19 06:16 PG Care Time/CCT Total # of Minutes Spent Total Time Spent with Patient: Total time spent is greater than 50% in coordination of care (as documented) at patient's floor/unit and/or counseling patient: Coding Level of Care Code 86974 Subseq Hosp Care Lvl 2 Diagnoses Acute hypoxemic respiratory failure J96.01 Kyphoscoliosis M41.9 Restrictive lung disease J98.4 Aspiration pneumonitis J69.0
[2019-08-07] MEDS: POTASSIUM CHLORIDE / WTR 10 MEQ/100 ML PLCT IV SCH (12:21)
[2019-08-07] MEDS: AMPICILLIN/SULBACTAM SOD 1,500 MG in 0.9 % SODIUM CHLORIDE 100 ML IV SCH ×2 (12:21→23:39)
--- NOTE | 2019-08-07 13:15 | Palliative Care Progress Note ---
Date of Service August 07, 2019 Assessment & Plan (1) Palliative care encounter: -Talked with hospitalist this AM. Overnight, patient had another episode of hypoxia and Afib with RVR with HR into the 130's for which Diltiazem was administered. -Lengthy conversation held with the patients daughter, Alla, and she stated 'this is just one more thing to add to her list'. She was tearful and indicated she knows that she is just overall worsening and isn't sure this is what she would want. -I advised that we could continue to treat her aggressively or transition to more comfort approach which has been discussed previously, the patient agreed that she would want more of a conservative/hospice approach. -We then discussed options with Alla and the patient directly. We talked about a more conservative approach overall, and focusing on comfort. Both Deja and Alla agree they would want this with a hopeful eventual goal to return home with Hospice services. Patient and daughter have correct understanding that Bipap will not be pursued with hospice services. -For now, discontinue all blood draws and medications. OK to continue IV abx while inpatient. Patient aware she likely will be transferred out of PCU. -Multiple family members standing outside of the room, but alla and patient wanted to speak with them to update them on their own. -I talked with Julita from Case Management. For now, she will see how the next 24 hours goes and then discuss choosing a Hospice agency with return home. Hopeful return home by Monday. -Patient with overall discomfort. Will order Roxanol 5 mg PO Q3 PRN for air hunger and pain. -POLST would be recommended prior to discharge, but was not appropriate to do today. -Patient already has paid caregivers at home. Hospice would be in addition and also family will provide overnight care. -PPS: 30% (2) Chronic complete flaccid quadriplegia: (3) Aspiration pneumonitis: (4) GERD (gastroesophageal reflux disease): (5) Restrictive lung disease: (6) Dysphagia: (7) NSVT (nonsustained ventricular tachycardia): Physical Exam Constitutional: + frail appearing Eyes: PERRL, conjunctivae normal, anicteric sclerae EOM intact bilaterally ENMT: external ear and nose normal, oropharynx normal Neck: normal visual inspection Respiratory: normal respiratory effort Cardiovascular: Rate/Rhythm: + tachycardic and + irregularly irregular Gastrointestinal (Abdomen): normal bowel sounds, soft, nontender, no hepatosplenomegaly Percussion/Palpation: abdomen soft Skin: no rashes, warm and dry Neurologic: PERRL, EOMI, accommodation nl, no face palsy, no dysarthria Psychiatric: Orientation: cooperative Lymphatic: no cervical or axillary lymphadenopathy Results & Data Vital Signs (Past 12 Hours) Vital Signs Temp Pulse Resp BP BP Pulse Ox 08/07/19 11:40 36.8 C 100 H 18 125/63 08/07/19 07:55 101 H 20 96 08/07/19 07:53 36.6 C 88 16 131/57 L 96 08/07/19 03:30 36.3 C L 89 20 129/53 L 90 PG Care Time/CCT Total # of Minutes Spent Total Time Spent with Patient: Total time spent is greater than 50% in coordination of care (as documented) at patient's floor/unit and/or counseling patient: 45 Coding Level of Care Code 34892 Subseq Hosp Care Lvl 3 Diagnoses Palliative care encounter Z51.5 Chronic complete flaccid quadriplegia Aspiration pneumonitis J69.0 GERD (gastroesophageal reflux disease) K21.9 Restrictive lung disease J98.4 Dysphagia R13.10 NSVT (nonsustained ventricular tachycardia) I47.2 Time Spent (min) 45 Time Spent Midlevel Total time spent 45 minutes with >50% of that time spent assessing the patient, discussing goals of care with the patient and her daughter.
[2019-08-07 15:15] VITALS: TEMP 97.9
--- NOTE | 2019-08-07 16:02 | Electrocardiogram Report ---
Test Reason : Blood Pressure : / mmHG Vent. Rate : 137 BPM Atrial Rate : 156 BPM P-R Int : 000 ms QRS Dur : 088 ms QT Int : 338 ms P-R-T Axes : 000 076 263 degrees QTc Int : 510 ms Atrial fibrillation with rapid ventricular response Marked ST abnormality, possible inferolateral subendocardial injury Abnormal ECG When compared with ECG of 04-AUG-2019 09:20, Significant changes have occurred Confirmed by Jackson Dillard ([id number]) on 08/07/2019 4:02:12 PM Referred By: REFERRED SELF Confirmed By:Jackson Dillard
[2019-08-07] MEDS ORDERED: MoRPHine SULFATE 5 MG/0.25 ML UDP PO PRN (17:14)
[2019-08-07] MEDS ORDERED: ACETAMINOPHEN 1,000 MG/100 ML VIAL IV PRN (17:14)
[2019-08-07] MEDS: MoRPHine SULFATE 5 MG/0.25 ML UDP PO PRN (18:39)
[2019-08-08] MEDS: IPRATROPIUM BROMIDE NEB SOLN 0.02% 2.5 ML VIAL INH SCH ×4 (00:32→19:23)
[2019-08-08] MEDS: LEVALBUTEROL HCL 0.63 MG/3 ML NEB NEB SCH ×4 (00:33→19:23)
[2019-08-08] MEDS: ACETYLCYSTEINE 10% INHAL SOLN 4 ML **DISPENSED BY RESP. INH SCH ×2 (07:43→19:23)
[2019-08-08] MEDS: LINACLOTIDE 72 MCG CAPSULE PO SCH (08:31)
[2019-08-08] MEDS: LOSARTAN POTASSIUM 50 MG TAB PO SCH (08:31)
[2019-08-08] MEDS: PANTOprazole 40 MG TAB PO SCH (08:32)
[2019-08-08] MEDS: FLUOXETINE HCL 20 MG CAP PO SCH (08:32)
[2019-08-08] MEDS: MoRPHine SULFATE 5 MG/0.25 ML UDP PO PRN ×4 (08:33→21:03)
[2019-08-08] MEDS: NYSTATIN SUSP 500,000 U/5 ML UDC PO SCH ×4 (09:27→21:04)
[2019-08-08] MEDS ORDERED: HYDROmorphone INJ 0.5 MG/0.5 ML SYR IV STA (09:33)
--- NOTE | 2019-08-08 10:26 | Hospitalist Progress Note ---
Date of Service August 08, 2019 Assessment & Plan (1) Hypoxia: (2) Bronchitis: Acute Respiratory Failure with Hypoxia Bronchitis: Possible Aspiration Pneumonia: "Pt is 79 y/o F with PMH HTN, polio, quadriplegia, restrictive lung disease secondary to kyphoscoliosis, GERD, depression, IBS presented to ER with complaint of shortness of breath x 1 day. Worse this morning after daily suctioning with increased SOB, diaphoresis and reported oxygen saturation in the 80s. In ER T: 36.4, R: 26 down to 18, P: 96, BP: 174/70, 86% on RA up to 96% on 3L NC WBC: 14.9, procalcitonin <0.05, lactate not obtained secondary to multiple needle sticks and unable to obtain. Negative influenza CXR: no acute changes CTA Chest: There is no evidence of pulmonary embolus in the main, lobar, or segmental pulmonary arteries. Moderate to severe thoracolumbar scoliosis distorts the thoracic cage.There is no focal airspace consolidation or pleural effusion. There are layering secretions in the trachea. Additionally, there is diffuse peribronchial thickening with fluid and secretions/mucous plugging within the upper and lower lobe bronchi. Foci of ill-defined parenchymal nodularity are of indeterminate significance and similar to the 02/25/2019 examination." -aspiration pneumonia or possible Hospital acquired pneumonia -speech therapist was consulted for silent aspiration / aspiration pneumonia -patient allowed to have food while on comfort care status -Continue IV Ampicillin/sulbactam as patient/patient's daughter wishes to continue IV antibiotics while in the hospital. Palliative care and case management will look into possible hospice arrangements Nonsustained V tach Cardiomyopathy, newly diagnosed Acute Systolic CHF Exacerbation atrial fibrillation in rapid ventricular response -admission with mild troponin elevation likely from Demand Ischemia; precipitated by hypoxia, respiratory issues, in the setting of newly diagnosed cardiomyopathy; Echo: Cardiomyopathy, EF 25 to 30% - initially patient's ventricular tachycardia was treated with IV metoprolol and then Amiodarone drip but patient developed bradycardia so both metoprolol and amiodarone held -patient was then in a normal rate and rhythm -additional Lasix given on 08/06/2019, currently on Lasix 20mg po daily -08/07/2019 patient was in afib RVR from 8 AM on 08/07/2019 and returned to sinus rhythm at 10:53 AM after initial intervention. palliative care assessed and patient and family agrees to comfort care. No further cardiac monitoring. No lab draws. There IV Vancomycin to be stopped because of needing lab draw monitoring. Comfort Care Status -on IV ampicillin/sulbactam -awaiting case management to coordinate with patient and patient's family of hospice care services after the hospital stay Restrictive lung disease: Kyphoscoliosis: -History restrictive lung disease secondary to kyphoscoliosis Quadriplegia -repositioning q shift Hypokalemia -replaced GERD (gastroesophageal reflux disease): -Continue PPI Oral Thrush - Nystatin IBS (irritable bowel syndrome): -Continue Linzess, stool softeners -MiraLAX as needed for constipation Depression: -Continue fluoxetine DVT Prophylaxis -Heparin SQ Patient's daughter Alla [phone] Admission and Anticipated Discharge Date Admission Date: August 03, 2019 Subjective Nurse requested additional dilaudid for patient because of discomfort. on my exa m, there is some rhonchi which makes the auscultation of heart sounds difficult to hear. patient is on nasal cannula oxygen. she is able to speak softly. awake and alert. she does not voice acute physical symptoms to medical doctor Review of Systems Review of Systems: All systems reviewed & are unremarkable except as noted in HPI & below Physical Exam Constitutional: + frail appearing Eyes: PERRL, conjunctivae normal, anicteric sclerae EOM intact bilaterally ENMT: external ear and nose normal, oropharynx normal Neck: normal visual inspection Respiratory: normal respiratory effort rhonchi Cardiovascular: distant heart sounds Gastrointestinal (Abdomen): Percussion/Palpation: abdomen soft Musculoskeletal: quadriplegic Psychiatric: Orientation: cooperative Results & Data ([facility]) Vital Signs (Past 12 Hours) Vital Signs Pulse Resp Pulse Ox 08/08/19 07:47 92 H 20 94 08/08/19 00:34 69 18 100
[2019-08-08 10:40] VITALS: BP 147/61
[2019-08-08] MEDS: AMPICILLIN/SULBACTAM SOD 1,500 MG in 0.9 % SODIUM CHLORIDE 100 ML IV SCH ×2 (13:25→23:07)
[2019-08-08] MEDS: SCOPOLAMINE 1.5 MG TDSY TD SCH (15:32)
[2019-08-08] MEDS ORDERED: ARTIFICIAL TEARS OP PRN (16:04)
--- NOTE | 2019-08-08 16:19 | Palliative Care Progress Note ---
Date of Service August 08, 2019 Assessment & Plan (1) Palliative care encounter: Patient is an 79-year-old female with a past medical history significant for polio with quadriplegia, hypertension, restrictive lung disease due to kyphoscoliosis and GERD who was brought to the emergency room on after having increased shortness of breath after suctioning with decrease oxygen saturation to the 80s. Patient's checks x-ray and CTA were negative for airspace disease or PE-did show a layering secretions in the trachea and mucous plugging. Patient was started on IV antibiotics - goal to return home with Hospice services. -For now, discontinue all blood draws and medications. OK to continue IV abx while inpatient. -POLST would be recommended prior to discharge, but is not required for admission to hospice -Patient already has paid caregivers at home. Hospice would be in addition and also family will provide overnight care. -PPS: 30% (2) Chronic complete flaccid quadriplegia: (3) Aspiration pneumonitis: (4) GERD (gastroesophageal reflux disease): (5) Restrictive lung disease: (6) Dysphagia: (7) NSVT (nonsustained ventricular tachycardia): Subjective Patient seen and examined, no family at bedside. Did collaborate with nursing. Patient nonverbal, minimally responsive, was able to nod to a few simple questions. Patient's did nod yes when asked if she was comfortable. Patient's eyes not closing completely-we will order artificial tears for comfort. Patient has a scope patch in place to handle excess oral secretions. Patient receiving low-dose morphine sulfate for comfort-patient has received 3 doses in the past 20 hours Events over the past 48 hours and note from ANDI Katz noted-plan is now for discharge home under hospice care with a goal of comfort. Review of Systems Review of Systems: Unobtainable due to cognitive status Physical Exam Physical Exam: PE: Patient appears comfortable HEENT: Dry sclera, EOMI, hearing within normal limits Respirations: Unlabored, coarse breath sounds bilaterally CV: Rate controlled Abdomen: Soft, not distended Extremities: Warm to touch, no mottling Neuro: Less alert Results & Data Vital Signs (Past 12 Hours) Vital Signs Pulse Resp BP Pulse Ox 08/08/19 13:47 83 20 90 08/08/19 08:00 94 H 147/61 H 08/08/19 07:47 92 H 20 94 PG Care Time/CCT Total # of Minutes Spent Total Time Spent with Patient: Total time spent 25 minutes with greater than 50% of the time spent at bedside assessing patient's current level of comfort and reviewing goals of care Coding Level of Care Code 31499 Subseq Hosp Care Lvl 2 Diagnoses Palliative care encounter Z51.5 Chronic complete flaccid quadriplegia Aspiration pneumonitis J69.0 GERD (gastroesophageal reflux disease) K21.9 Restrictive lung disease J98.4 Dysphagia R13.10 NSVT (nonsustained ventricular tachycardia) I47.2 Time Spent (min) 25
[2019-08-08] MEDS: CHECK SCOPOLAMINE PATCH PLACEMENT SCH (21:07)
[2019-08-09] MEDS: LEVALBUTEROL HCL 0.63 MG/3 ML NEB NEB SCH ×2 (00:55→06:57)
[2019-08-09] MEDS: IPRATROPIUM BROMIDE NEB SOLN 0.02% 2.5 ML VIAL INH SCH ×2 (00:55→06:56)
[2019-08-09 00:56] VITALS: PULSE 86; O2SAT 84
[2019-08-09] MEDS: ACETYLCYSTEINE 10% INHAL SOLN 4 ML **DISPENSED BY RESP. INH SCH (06:56)
--- NOTE | 2019-08-09 07:46 | Hospitalist Progress Note ---
Date of Service August 09, 2019 Assessment & Plan (1) Hypoxia: (2) Bronchitis: Acute Respiratory Failure with Hypoxia Bronchitis: Possible Aspiration Pneumonia: "Pt is 79 y/o F with PMH HTN, polio, quadriplegia, restrictive lung disease secondary to kyphoscoliosis, GERD, depression, IBS presented to ER with complaint of shortness of breath x 1 day. Worse this morning after daily suctioning with increased SOB, diaphoresis and reported oxygen saturation in the 80s. In ER T: 36.4, R: 26 down to 18, P: 96, BP: 174/70, 86% on RA up to 96% on 3L NC WBC: 14.9, procalcitonin <0.05, lactate not obtained secondary to multiple needle sticks and unable to obtain. Negative influenza CXR: no acute changes CTA Chest: There is no evidence of pulmonary embolus in the main, lobar, or segmental pulmonary arteries. Moderate to severe thoracolumbar scoliosis distorts the thoracic cage.There is no focal airspace consolidation or pleural effusion. There are layering secretions in the trachea. Additionally, there is diffuse peribronchial thickening with fluid and secretions/mucous plugging within the upper and lower lobe bronchi. Foci of ill-defined parenchymal nodularity are of indeterminate significance and similar to the 02/25/2019 examination." -aspiration pneumonia or possible Hospital acquired pneumonia -speech therapist was consulted for silent aspiration / aspiration pneumonia -patient allowed to have food while on comfort care status -Continue IV Ampicillin/sulbactam as patient/patient's daughter wishes to continue IV antibiotics while in the hospital. Palliative care and case management will look into possible hospice arrangements Nonsustained V tach Cardiomyopathy, newly diagnosed Acute Systolic CHF Exacerbation atrial fibrillation in rapid ventricular response -admission with mild troponin elevation likely from Demand Ischemia; precipitated by hypoxia, respiratory issues, in the setting of newly diagnosed cardiomyopathy; Echo: Cardiomyopathy, EF 25 to 30% - initially patient's ventricular tachycardia was treated with IV metoprolol and then Amiodarone drip but patient developed bradycardia so both metoprolol and amiodarone held -patient was then in a normal rate and rhythm -additional Lasix given on 08/06/2019, currently on Lasix 20mg po daily -08/07/2019 patient was in afib RVR from 8 AM on 08/07/2019 and returned to sinus rhythm at 10:53 AM after initial intervention. palliative care assessed and patient and family agrees to comfort care. No further cardiac monitoring. No lab draws. There IV Vancomycin to be stopped because of needing lab draw monitoring. Comfort Care Status -on IV ampicillin/sulbactam -awaiting case management to coordinate with patient and patient's family of hospice care services after the hospital stay. as per recent nurse outreach case manager updates, possible discharge on hospice on Monday08/10/2019 Restrictive lung disease: Kyphoscoliosis: -History restrictive lung disease secondary to kyphoscoliosis Quadriplegia -repositioning q shift Hypokalemia -replaced as per last times the labs were drawn GERD (gastroesophageal reflux disease): -Continue PPI Oral Thrush - Nystatin IBS (irritable bowel syndrome): -Continue Linzess, stool softeners -MiraLAX as needed for constipation Depression: -Continue fluoxetine DVT Prophylaxis -Heparin SQ Patient's daughter Alla [phone] Admission and Anticipated Discharge Date Admission Date: August 03, 2019 Subjective patient is seen and examined while sleeping this AM. she remains under comfort care Review of Systems Review of Systems: Unobtainable due to reduced consciousness Physical Exam Constitutional: + frail appearing ENMT: external ear and nose normal, oropharynx normal Neck: normal visual inspection Respiratory: normal respiratory effort Cardiovascular: Rate/Rhythm: + irregularly irregular Gastrointestinal (Abdomen): Percussion/Palpation: abdomen soft Psychiatric: patient is seen and examined while sleeping this AM Results & Data ([facility]) Vital Signs (Past 12 Hours) Vital Signs Pulse Resp Pulse Ox 08/09/19 00:55 86 20 84 L
[2019-08-09] MEDS: CHECK SCOPOLAMINE PATCH PLACEMENT SCH ×3 (08:07→23:20)
[2019-08-09] MEDS: LINACLOTIDE 72 MCG CAPSULE PO SCH (08:08)
[2019-08-09] MEDS: FLUOXETINE HCL 20 MG CAP PO SCH (08:08)
[2019-08-09] MEDS: LOSARTAN POTASSIUM 50 MG TAB PO SCH (08:08)
[2019-08-09] MEDS: PANTOprazole 40 MG TAB PO SCH (08:08)
[2019-08-09] MEDS: NYSTATIN SUSP 500,000 U/5 ML UDC PO SCH ×5 (08:14→20:02)
[2019-08-09] MEDS: MoRPHine SULFATE 5 MG/0.25 ML UDP PO PRN ×4 (08:31→22:30)
[2019-08-09] MEDS ORDERED: LEVALBUTEROL HCL 0.63 MG/3 ML NEB NEB PRN (09:24)
[2019-08-09] MEDS ORDERED: IPRATROPIUM BROMIDE NEB SOLN 0.02% 2.5 ML VIAL INH PRN (09:24)
[2019-08-09] MEDS: AMPICILLIN/SULBACTAM SOD 1,500 MG in 0.9 % SODIUM CHLORIDE 100 ML IV SCH ×2 (11:59→23:44)
[2019-08-09] MEDS ORDERED: LORazepam 0.25 MG/0.5 ML VIAL IV PRN (17:10)
[2019-08-09] MEDS ORDERED: ATROPINE SULFATE 1% OP SOLN 2 ML BTL SL PRN (23:26)
[2019-08-09] MEDS ORDERED: MoRPHine SULFATE 5 MG/0.25 ML UDP PO PRN (23:29)
[2019-08-09] MEDS ORDERED: MoRPHine SULFATE 5 MG/0.25 ML UDP PO STA (23:34)
[2019-08-10] MEDS: CHECK SCOPOLAMINE PATCH PLACEMENT SCH ×3 (08:09→23:41)
[2019-08-10] MEDS: NYSTATIN SUSP 500,000 U/5 ML UDC PO SCH ×3 (08:10→15:59)
[2019-08-10] MEDS: LINACLOTIDE 72 MCG CAPSULE PO SCH (08:10)
[2019-08-10] MEDS: FLUOXETINE HCL 20 MG CAP PO SCH (08:10)
[2019-08-10] MEDS: PANTOprazole 40 MG TAB PO SCH (08:10)
[2019-08-10] MEDS: LOSARTAN POTASSIUM 50 MG TAB PO SCH (08:10)
--- NOTE | 2019-08-10 08:51 | Hospitalist Progress Note ---
Date of Service August 10, 2019 Assessment & Plan (1) Hypoxia: (2) Bronchitis: Acute Respiratory Failure with Hypoxia Bronchitis: Possible Aspiration Pneumonia: "Pt is 79 y/o F with PMH HTN, polio, quadriplegia, restrictive lung disease secondary to kyphoscoliosis, GERD, depression, IBS presented to ER with complaint of shortness of breath x 1 day. Worse this morning after daily suctioning with increased SOB, diaphoresis and reported oxygen saturation in the 80s. In ER T: 36.4, R: 26 down to 18, P: 96, BP: 174/70, 86% on RA up to 96% on 3L NC WBC: 14.9, procalcitonin <0.05, lactate not obtained secondary to multiple needle sticks and unable to obtain. Negative influenza CXR: no acute changes CTA Chest: There is no evidence of pulmonary embolus in the main, lobar, or segmental pulmonary arteries. Moderate to severe thoracolumbar scoliosis distorts the thoracic cage.There is no focal airspace consolidation or pleural effusion. There are layering secretions in the trachea. Additionally, there is diffuse peribronchial thickening with fluid and secretions/mucous plugging within the upper and lower lobe bronchi. Foci of ill-defined parenchymal nodularity are of indeterminate significance and similar to the 02/25/2019 examination." -aspiration pneumonia or possible Hospital acquired pneumonia -speech therapist was consulted for silent aspiration / aspiration pneumonia -patient allowed to have food while on comfort care status -stopped IV Ampicillin/sulbactam as per patient's daughter wishes Nonsustained V tach Cardiomyopathy, newly diagnosed Acute Systolic CHF Exacerbation atrial fibrillation in rapid ventricular response -admission with mild troponin elevation likely from Demand Ischemia; precipitated by hypoxia, respiratory issues, in the setting of newly diagnosed cardiomyopathy; Echo: Cardiomyopathy, EF 25 to 30% - initially patient's ventricular tachycardia was treated with IV metoprolol and then Amiodarone drip but patient developed bradycardia so both metoprolol and amiodarone held -patient was then in a normal rate and rhythm -additional Lasix given on 08/06/2019, currently on Lasix 20mg po daily -08/07/2019 patient was in afib RVR from 8 AM on 08/07/2019 and returned to sinus rhythm at 10:53 AM after initial intervention. palliative care assessed and pat ient and family agrees to comfort care. No further cardiac monitoring. No lab draws. Comfort Care Status -awaiting case management to coordinate with patient and patient's family of hospice care services after the hospital stay. as per recent senior case manager updates, possible discharge on hospice on Monday08/10/2019 Restrictive lung disease: Kyphoscoliosis: -History restrictive lung disease secondary to kyphoscoliosis Quadriplegia -repositioning q shift Hypokalemia -replaced as per last times the labs were drawn GERD (gastroesophageal reflux disease): IBS (irritable bowel syndrome): Depression: -as this time patient appears not be able to take oral medications DVT Prophylaxis -Heparin SQ Patient's daughter Alla [phone] Admission and Anticipated Discharge Date Admission Date: August 03, 2019 Subjective Patient is lethargic with open mouth breathing on face mask supplementary oxygen. patient does not open her eyes to verbal or tactile stimuli. -stop IV Ampicillin/sulbactam as per patient's daughter wishes Review of Systems Review of Systems: All systems reviewed & are unremarkable except as noted in HPI & below Physical Exam Constitutional: + frail appearing ENMT: external ear and nose normal, oropharynx normal Neck: normal visual inspection Respiratory: open mouth breathing Cardiovascular: Rate/Rhythm: + irregularly irregular Gastrointestinal (Abdomen): Percussion/Palpation: abdomen soft Psychiatric: minimally responsive
[2019-08-11] MEDS: CHECK SCOPOLAMINE PATCH PLACEMENT SCH ×3 (09:27→23:48)
--- NOTE | 2019-08-11 10:16 | Hospitalist Progress Note ---
Date of Service August 11, 2019 Assessment & Plan (1) Hypoxia: (2) Bronchitis: Acute Respiratory Failure with Hypoxia Bronchitis: Possible Aspiration Pneumonia: "Pt is 79 y/o F with PMH HTN, polio, quadriplegia, restrictive lung disease secondary to kyphoscoliosis, GERD, depression, IBS presented to ER with complaint of shortness of breath x 1 day. Worse this morning after daily suctioning with increased SOB, diaphoresis and reported oxygen saturation in the 80s. In ER T: 36.4, R: 26 down to 18, P: 96, BP: 174/70, 86% on RA up to 96% on 3L NC WBC: 14.9, procalcitonin <0.05, lactate not obtained secondary to multiple needle sticks and unable to obtain. Negative influenza CXR: no acute changes CTA Chest: There is no evidence of pulmonary embolus in the main, lobar, or segmental pulmonary arteries. Moderate to severe thoracolumbar scoliosis distorts the thoracic cage.There is no focal airspace consolidation or pleural effusion. There are layering secretions in the trachea. Additionally, there is diffuse peribronchial thickening with fluid and secretions/mucous plugging within the upper and lower lobe bronchi. Foci of ill-defined parenchymal nodularity are of indeterminate significance and similar to the 02/25/2019 examination." -aspiration pneumonia or possible Hospital acquired pneumonia -speech therapist was consulted for silent aspiration / aspiration pneumonia -patient allowed to have food while on comfort care status but is not eating at this time -had stopped IV Ampicillin/sulbactam as per patient's daughter wishes Nonsustained V tach Cardiomyopathy, newly diagnosed Acute Systolic CHF Exacerbation atrial fibrillation in rapid ventricular response -admission with mild troponin elevation likely from Demand Ischemia; precipitated by hypoxia, respiratory issues, in the setting of newly diagnosed cardiomyopathy; Echo: Cardiomyopathy, EF 25 to 30% - initially patient's ventricular tachycardia was treated with IV metoprolol and then Amiodarone drip but patient developed bradycardia so both metoprolol and amiodarone held -patient was then in a normal rate and rhythm -additional Lasix given on 08/06/2019, currently on Lasix 20mg po daily -08/07/2019 patient was in afib RVR from 8 AM on 08/07/2019 and returned to sinus rhythm at 10:53 AM after initial intervention. palliative care assessed and patient and family agrees to comfort care. No further cardiac monitoring. No lab draws. Comfort Care Status -awaiting case management to coordinate with patient and patient's family of hospice care services after the hospital stay. -because of patient's continued decline, the original plan for discharge to home with hospice on Monday08/10/2019 has changed. Patient's oxygen requirements and changes to dark skin color of the face and dusky color of the feet suggests that patient may be near impending . will continue to provide comfort care to patient in the hospital. patient's family members including her daughter is in agreement with this plan Restrictive lung disease: Kyphoscoliosis: -History restrictive lung disease secondary to kyphoscoliosis Quadriplegia -repositioning q shift Hypokalemia -replaced as per last times the labs were drawn GERD (gastroesophageal reflux disease): IBS (irritable bowel syndrome): Depression: -as this time patient appears not be able to take oral medications DVT Prophylaxis -Heparin SQ Patient's daughter Alla [phone] Admission and Anticipated Discharge Date Admission Date: August 03, 2019 Subjective dark skin color of the face and dusky color of the feet, open mouth breathing on oxygen mask, nonresponsive to tactile or verbal stimuli Review of Systems Review of Systems: All systems reviewed & are unremarkable except as noted in HPI & below Physical Exam Constitutional: + frail appearing (minimally responsive) Neck: normal visual inspection Respiratory: + abnormal respiratory pattern (open mouth breathing on oxygen mask) Cardiovascular: Rate/Rhythm: + bradycardic Gastrointestinal (Abdomen): Percussion/Palpation: abdomen soft Skin: + mottling (dark skin color of the face and dusky color of the feet)
[2019-08-11] MEDS: SCOPOLAMINE 1.5 MG TDSY TD SCH (12:52)
[2019-08-12] MEDS: CHECK SCOPOLAMINE PATCH PLACEMENT SCH (08:27)
--- NOTE | 2019-08-12 10:53 | Death Summary ---
Date of Service August 12, 2019 Pronouncement Note Contributing Factors (1) Hypoxia: (2) Bronchitis: Additional Data Attending physician: Omer Acosta MD Medical doctor was informed by nursing that patient's family witnessed patient's at 10:45 AM on 08/12/2019 on comfort care status. Medical doctor was right outside of the patient's room when this occurred. Patient did not have chest rise. Patient not breathing. No heart rate heard. No pulse palpable. Pupils fixed and dilated. Time of is 10:45 AM on 08/12/2019
--- NOTE | 2019-08-12 12:05 | Discharge Summary ---
Date of Service August 12, 2019 Admission HPI Per Admitting Provider Pt is 79 y/o F with PMH HTN, polio, quadriplegia, restrictive lung disease secondary to kyphoscoliosis, GERD, depression, IBS presented to ER with complaint of shortness of breath. Reports chronic productive cough and takes Mucinex twice daily. Patient's daughter reports patient usually requires suctioning once a day. States this morning suctioning when she started become more short of breath and sweaty and had noted oxygen saturation in the 80s. Denies any known fevers, nausea, vomiting. Denies chest pain or choking. Reports chronic constipation, took laxative this morning. Denies any recent travel, ill contacts. Did not have influenza vaccine this season. Reports previously followed with [facility] who ordered PFTs however PFTs were not able to be completed secondary to patient not being able to sit up on her own in PFT chamber. Reports history pneumonia and 05/2019 was able to be treated outpatient. Denies ARTEAGA, dizziness, syncope, vision changes, neck pain, orthopnea, palpitations, sore throat, choking, otalgia, rhinorrhea, abdominal pain, increased extremity edema, rashes, urinary symptoms. Principal Diagnosis Comfort Care Status Acute Respiratory Failure with Hypoxia Cardiomyopathy Bronchitis: Possible Aspiration Pneumonia Nonsustained Ventricular tachycardia Acute Systolic CHF Exacerbation atrial fibrillation in rapid ventricular response Discharge Data Allergies Allergy/AdvReac Type Severity Reaction Status Date / Time doxycycline Allergy Severe swollen Verified 08/03/19 11:27 eyes Bactrim Allergy Unknown UNKNOWN Unverified 03/17/14 14:51 Cipro Allergy Unknown UNKNOWN Unverified 03/17/14 14:51 ciprofloxacin Allergy Unknown UNKNOWN Unverified 08/03/19 11:27 sulfamethoxazole Allergy Unknown UNKNOWN Unverified 08/03/19 11:27 trimethoprim Allergy Unknown UNKNOWN Unverified 08/03/19 11:27 Consultations 08/03/19 13:09 ED Decision to Admit Stat 08/03/19 15:44 Consult Case Management - Discharge Planning Routine 08/04/19 09:00 Consult Pulmonology Routine 08/04/19 09:45 Consult Cardiology Routine 08/05/19 08:41 Consult Palliative Care Routine 08/05/19 18:33 Consult Case Management - Discharge Planning Routine Ordered Studies 08/03/19 13:07 CT angio chest PE protocol Stat 08/03/19 16:59 US venous doppler LE LT Stat Hospital Course (1) Hypoxia: (2) Bronchitis: Acute Respiratory Failure with Hypoxia Bronchitis: Possible Aspiration Pneumonia: "Pt is 79 y/o F with PMH HTN, polio, quadriplegia, restrictive lung disease secondary to kyphoscoliosis, GERD, depression, IBS presented to ER with complaint of shortness of breath x 1 day. Worse this morning after daily suctioning with increased SOB, diaphoresis and reported oxygen saturation in the 80s. In ER T: 36.4, R: 26 down to 18, P: 96, BP: 174/70, 86% on RA up to 96% on 3L NC WBC: 14.9, procalcitonin <0.05, lactate not obtained secondary to multiple needle sticks and unable to obtain. Negative influenza CXR: no acute changes CTA Chest: There is no evidence of pulmonary embolus in the main, lobar, or segmental pulmonary arteries. Moderate to severe thoracolumbar scoliosis distorts the thoracic cage.There is no focal airspace consolidation or pleural effusion. There are layering secretions in the trachea. Additionally, there is diffuse peribronchial thickening with fluid and secretions/mucous plugging within the upper and lower lobe bronchi. Foci of ill-defined parenchymal nodularity are of indeterminate significance and similar to the 02/25/2019 examination." -aspiration pneumonia or possible Hospital acquired pneumonia -speech therapist was consulted for silent aspiration / aspiration pneumonia -patient allowed to have food while on comfort care status but is not eating at this time -had stopped IV Ampicillin/sulbactam as per patient's daughter wishes Nonsustained V tach Cardiomyopathy, newly diagnosed Acute Systolic CHF Exacerbation atrial fibrillation in rapid ventricular response -admission with mild troponin elevation likely from Demand Ischemia; precipitated by hypoxia, respiratory issues, in the setting of newly diagnosed cardiomyopathy; Echo: Cardiomyopathy, EF 25 to 30% - initially patient's ventricular tachycardia was treated with IV metoprolol and then Amiodarone drip but patient developed bradycardia so both metoprolol and amiodarone held -patient was then in a normal rate and rhythm -additional Lasix given on 08/06/2019, currently on Lasix 20mg po daily -08/07/2019 patient was in afib RVR from 8 AM on 08/07/2019 and returned to sinus rhythm at 10:53 AM after initial intervention. palliative care assessed and patient and family agrees to comfort care. No further cardiac monitoring. No lab draws. Comfort Care Status -awaiting case management to coordinate with patient and patient's family of hospice care services after the hospital stay. -because of patient's continued decline, the original plan for discharge to home with hospice on Monday08/10/2019 has changed. Patient's oxygen requirements and changes to dark skin color of the face and dusky color of the feet suggests that patient may be near impending . will continue to provide comfort care to patient in the hospital. patient's family members including her daughter is in agreement with this plan -08/12/2019: Medical doctor was informed by nursing that patient's family witnessed patient's at 10:45 AM on 08/12/2019 on comfort care status. Medical doctor was right outside of the patient's room when this occurred. Patient did not have chest rise. Patient not breathing. No heart rate heard. No pulse palpable. Pupils fixed and dilated. Time of is 10:45 AM on 08/12/2019 Restrictive lung disease: Kyphoscoliosis: -History restrictive lung disease secondary to kyphoscoliosis Quadriplegia Hypokalemia -replaced as per last times the labs were drawn GERD (gastroesophageal reflux disease): IBS (irritable bowel syndrome): Depression: Patient's daughter Alla [phone] Total Time Total Time Spent Total Time Spent (In Minutes): 10 minutes Total Time Includes: Examination of the Patient, Discharge Planning, Medication Reconciliation and Communication With Other Providers Discharge Plan Discharge Items Patient Disposition: Reason For Visit: HYPOXIA Discharge Diagnosis: Comfort Care Status Acute Respiratory Failure with Hypoxia Cardiomyopathy Bronchitis: Possible Aspiration Pneumonia Nonsustained Ventricular tachycardia Acute Systolic CHF Exacerbation atrial fibrillation in rapid ventricular response Follow-up/Referrals: Marcela Tony MD [Primary Care Provider] - Addtl Attending Provider Instructions: Medical doctor was informed by nursing that patient's family witnessed patient's at 10:45 AM on 08/12/2019 on comfort care status. Medical doctor was right outside of the patient's room when this occurred. Patient did not have chest rise. Patient not breathing. No heart rate heard. No pulse palpable. Pupils fixed and dilated. Time of is 10:45 AM on 08/12/2019 Admission Data Admit Date/Time: 08/03/19 14:17
== END 2019-08-12 12:46 | disposition expired | DRG 177 ==
LOC: ED 10:48 → 2E 14:17 → SUATTDRO 14:17 → 2E 15:05 → 4W 08-07 11:44